=== PATIENT | female | born 1970 ===

== ENCOUNTER 2017-11-06 20:51 | Inpatient (IN) ==
[2017-11-06 21:52] LABS: Baso # (Auto) 0.1 th/mm3 (0.0-0.2); Baso % (Auto) 0.7 % (0.0-2.0); Hematocrit 36.8 % (35.0-46.0); Hemoglobin 11.1 gm/dL (11.6-15.3); Lymph # (Auto) 1.3 th/mm3 (1.0-4.8); Lymph % (Auto) 15.9 % (9.0-44.0); Mean Corpuscular Hemoglobin 20.3 pg (27.0-34.0); Mean Corpuscular Volume 67.3 fL (80.0-100.0); Mono # (Auto) 0.5 th/mm3 (0.0-0.9); Mono % (Auto) 6.1 % (0.0-8.0); Neut # (Auto) 6.2 th/mm3 (1.8-7.7); Neut % (Auto) 77.3 % (16.0-70.0); Platelet Count 255 th/mm3 (150-450); Red Blood Count 5.47 mil/mm3 (4.00-5.30); Red Cell Distribution Width 18.3 % (11.6-17.2)
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
[2017-11-06 21:54] LABS: Mean Corpuscular HGB Conc 30.1 % (32.0-36.0)
[2017-11-06 22:15] LABS: Alanine Aminotransferase 14 U/L (10-53); Albumin 3.6 g/dL (3.4-5.0); Alkaline Phosphatase 154 U/L (45-117); Anion Gap 13 meq/L (5-15); Aspartate Aminotransferase 16 U/L (15-37); Beta Hydroxybutyric Acid 0.14 mmol/L (0.00-0.39); Blood Urea Nitrogen 11 mg/dL (7-18); Calcium 8.2 mg/dL (8.5-10.1); Carbon Dioxide 22.4 meq/L (21.0-32.0); Chloride 101 meq/L (98-107); Glomerular Filtration Rate 71 mL/min (>89); Potassium 3.9 meq/L (3.5-5.1); Sodium 136 meq/L (136-145); Total Protein 7.3 g/dL (6.4-8.2)
[2017-11-06 22:25] LABS: Glucose,Random 483 mg/dL (74-106)
[2017-11-06 22:50] LABS: Bilirubin,Urine Negative (Negative); Clarity,Urine Hazy (Clear); Color,Urine Yellow (Yellw/Straw); Glucose,Urine (UA) 500 or Greater mg/dL (Negative); Leukocyte Esterase,Urine Moderate (Negative); Nitrite,Urine Negative (Negative); Specific Gravity,Urine 1.037 (1.002-1.035); Squamous Epithelial Cell,Urine 1 /hpf (0-5)
[2017-11-06 22:55] LABS: Amphetamine Screen,Urine Neg (Neg); Barbiturate Screen,Urine Neg (Neg); Cannabinoid Screen,Urine Neg (Neg); Cocaine Screen,Urine Neg (Neg)
[2017-11-06 22:57] LABS: Opiate Screen,Urine Neg (Neg)
[2017-11-06] MEDS: Nitrofurantoin Monohydrate-Macrocrystal 100 MG Capsule PO SCH (23:08)
[2017-11-06] MEDS ORDERED: Sod Chloride 0.9% Inj 1,000 ML IV.SIG SCH (23:45)
[2017-11-07] MEDS ORDERED: Sod Chloride 0.9% Inj 1,000 ML IV.SIG SCH (01:15)
[2017-11-07] MEDS: Nitrofurantoin Monohydrate-Macrocrystal 100 MG Capsule PO SCH (08:38)
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
[2017-11-07] MEDS ORDERED: LORazepam 1 MG Tablet PO PRN (15:55)
[2017-11-07] MEDS ORDERED: Bisacodyl 10 MG Supp RECTAL PRN (15:55)
[2017-11-07] MEDS ORDERED: Aluminum/Magnesium/Simethacone Susp 30 ML UDC PO PRN (15:55)
[2017-11-07] MEDS ORDERED: Haloperidol Inj 5 MG/ML Ampul IV.PUSH PRN (15:55)
[2017-11-07] MEDS: Senna/Docusate Sodium 8.6/50 MG Tablet PO SCH (20:40)
[2017-11-07] MEDS ORDERED: Dextrose 50% in Water 50 ML Vial IV.PUSH PRN (22:18)
[2017-11-07] MEDS: Insulin NovoLIN Regular Correctional Sugar Inj SQ SCH (22:46)
[2017-11-07] MEDS: Insulin Detemir Inj 1,000 UNIT/10 ML Vial SQ SCH (23:39)
[2017-11-08] MEDS: Insulin NovoLIN Regular Correctional Sugar Inj SQ SCH ×3 (08:20→20:22)
[2017-11-08] MEDS: Nitrofurantoin Monohydrate-Macrocrystal 100 MG Capsule PO SCH (08:30)
[2017-11-08] MEDS: Senna/Docusate Sodium 8.6/50 MG Tablet PO SCH ×2 (08:30→20:26)
[2017-11-08] MEDS: Insulin Detemir Inj 1,000 UNIT/10 ML Vial SQ SCH ×2 (09:22→20:25)
[2017-11-08 09:31] LABS: Anion Gap 10 meq/L (5-15); Blood Urea Nitrogen 8 mg/dL (7-18); Calcium 8.4 mg/dL (8.5-10.1); Carbon Dioxide 30.3 meq/L (21.0-32.0); Chloride 100 meq/L (98-107); Cholesterol 149 mg/dL (120-200); Glomerular Filtration Rate Greater Than 89 mL/min (>89); Glucose,Random 341 mg/dL (74-106); Potassium 4.1 meq/L (3.5-5.1); Sodium 140 meq/L (136-145)
[2017-11-08 09:40] LABS: Chol/HDL Ratio 4.19 Ratio; HDL Cholesterol 35.5 mg/dL (40.0-60.0); LDL Cholesterol,Calculated 88 mg/dL (0-99); Triglycerides 126 mg/dL (42-150)
--- NOTE | 2017-11-08 11:51 | P.CON ---
History of Present Illness Service: Hospitalist Consult date: 11/08/17 Requesting Physician: Paul Mendez Reason for Consult: Medical management, diabetes management Primary Care Provider: UNKNOWN History of Present Illness: This is a 47-year-old female with past medical history significant for depression, diabetes and history of MRSA skin lesions who presented to [facility] ED under Pacheco act due to paranoia. In the ED, patient was found to have uncontrolled blood sugars with BS of 475. She has since been admitted to inpatient psychiatry for acute psychosis. Hospitalist services have been consulted to assist with medical management. Patient seen and examined. Patient reports skin lesions on her face and breasts which are chronic. She denies any headache, vision changes, weakness numbness or tingling. She denies any fever or chills. She denies any chest pain or shortness of breath. She denies any nausea, vomiting or abdominal pain. She does report a history of infrequent constipation for which she takes Senokot at home for a daily basis. She reports her last BM was yesterday morning. She denies any complaints of dysuria or hematuria. Patient states she takes metformin at home. She denies using insulin. Her last blood sugar reading was 255. Review of Systems All other systems reviewed negative except as stated in [facility] PMFSH - History History Provided By: Patient, Medical Record - Medical History Medical History: Medical History (Last Updated 11/08/17 @ 11:31 by Aylin Otero) Hypertension Type 2 diabetes mellitus - Surgical History Surgical History: Surgical History (Last Updated 11/08/17 @ 11:32 by Aylin Otero) No history of previous surgery (Acute) - Family History Family History: Family History (Last Updated 11/08/17 @ 11:32 by Aylin Otero) Father Diabetes - Tobacco History Second Hand Smoke Exposure: No Smoking Status: Never smoker - Alcohol History How Often Do You Have a Drink Containing Alcohol: Never - Substance Use History Substance History: No History of Abuse - Travel History Recent Travel in the [place] Within the Last 8 Weeks: No Recent Travel Out of the Country Within the Last 8 Weeks: No - Immunization History Tetanus Immunization: Unable to Assess Hx Influenza Vaccine This Season: Unable to Assess Medications and Allergies Active Medications: Active Medications Al Hydrox/Mg Hydrox/Simethicone (Mag-Al Plus Susp Liq) 30 ml PO Q6H PRN PRN Reason: DYSPEPSIA Al Hydroxide/Mg Hydroxide (Milk Of Magnesia Liq) 30 ml PO Q12H PRN PRN Reason: Mild Constipation Bisacodyl (Dulcolax Supp) 10 mg RECTAL DAILY PRN PRN Reason: SEVERE CONSITIPATION Dextrose (D50w Vial) 50 ml IV.PUSH UNSCH PRN PRN Reason: PER HYPOGLYCEMIA PROTOCOL Flumazenil (Romazecon Inj) 0.2 mg IV.PUSH Q1M PRN PRN Reason: OVERSEDATION Glucagon (Glucagon Inj) 1 mg OTHER PRN PRN PRN Reason: for Hypoglycemia Protocol Haloperidol Lactate (Haldol Inj) 1 mg IV.PUSH Q15M PRN PRN Reason: for severe agitation Sodium Chloride (Ns Inj) 1,000 mls @ 0 mls/hr IV.SIG BOLUS [facility] Last Infusion: 11/07/17 01:30 Dose: Infused Sodium Chloride (Ns Inj) 1,000 mls @ 0 mls/hr IV.SIG BOLUS [facility] Last Infusion: 11/07/17 03:45 Dose: Infused Insulin Detemir (Levemir Inj) 6 unit SQ BID [facility] Last Admin: 11/08/17 09:22 Dose: 6 unit Insulin Human Regular (Novolin R Correctional Sugar Inj) 0 units SQ ACHS [facility]; Protocol Last Admin: 11/08/17 08:20 Dose: 5 units Lactulose (Lactulose Liq) 30 ml PO DAILY PRN PRN Reason: SEVERE CONSITIPATION Lorazepam (Ativan) 2 mg PO Q2H PRN PRN Reason: for CIWA 11-14 Lorazepam (Ativan Inj) 2 mg IV.PUSH Q2H PRN PRN Reason: for CIWA 11-14 Lorazepam (Ativan Inj) 2 mg IV.PUSH Q1H PRN PRN Reason: for CIWA 15-20 Lorazepam (Ativan Inj) 1 mg IV.PUSH Q4H PRN PRN Reason: for CIWA 8-10 Lorazepam (Ativan) 1 mg PO Q4H PRN PRN Reason: for CIWA 8-10 Lorazepam (Ativan Inj) 2 mg IV.PUSH Q15M PRN PRN Reason: for CIWA > 20 [facility] Admin: 11/08/17 08:30 Dose: 100 mg Senna/Docusate Sodium (Vielka-Colace) 1 tab PO BID [facility] Last Admin: 11/08/17 08:30 Dose: 1 tab Sennosides (Senokot) 17.2 mg PO Q12H PRN PRN Reason: Moderate Constipation Venlafaxine HCl (Effexor) 25 mg PO BID [facility] Last Admin: 11/07/17 20:42 Dose: Not Given Allergies Allergy/AdvReac Type Severity Reaction Status Date / Time No Known Allergies Allergy Verified 11/06/17 21:32 Home Medications Medication Instructions Recorded Confirmed Type Unable to Obtain Home Meds 11/06/17 11/06/17 History Physical Exam Vital signs: Vital Signs 11/07/17 15:13 11/07/17 18:13 11/08/17 05:48 Temperature 97.9 F 98.6 F Pulse Rate 80 87 82 Respiratory Rate 16 Blood Pressure 168/102 H 128/63 Pulse Oximetry 98 96 Intake & Output 11/07/17 11/08/17 11/08/17 18:59 06:59 18:59 Weight 120.9 kg Other: Weight On Admission 120.9 kg Narrative: GENERAL: Obese WDWN female patient, INAD. Awake and alert. SKIN: Warm and dry. +several small superficial skin lesions on chin and bilateral breasts, no indication of underlying abscess, no obvious infection. HEAD: Atraumatic. Normocephalic. EYES: Pupils equal and round. No scleral icterus. No injection or drainage. ENT: No nasal bleeding or discharge. Mucous membranes pink and moist. NECK: Trachea midline. CARDIOVASCULAR: Regular rate and rhythm. RESPIRATORY: No accessory muscle use. Clear to auscultation. Breath sounds equal bilaterally. GASTROINTESTINAL: Abdomen soft, non-tender, nondistended. Hepatic and splenic margins not palpable. MUSCULOSKELETAL: Extremities without clubbing, cyanosis, or edema. No obvious deformities. NEUROLOGICAL: Awake and alert. No obvious cranial nerve deficits. Motor grossly within normal limits. No focal neurologic finding appreciated. Normal speech. PSYCHIATRIC: Calm and cooperative. Judgement and insight poor. Assessment and Plan - Assessment (1) Hyperglycemia due to type 2 diabetes mellitus Code(s): E11.65 - Type 2 diabetes mellitus with hyperglycemia Status: Acute - Plan 47-year-old female with past medical history significant for depression, diabetes and history of MRSA skin lesions who presented to [facility] ED under P[place]co act due to paranoia admitted with acute psychosis to inpatient psychiatry. Hospitalist services have been consulted to assist with medical management. Acute psychosis Depression -Management per psychiatric team Uncontrolled DM Patient's blood sugars were 75 in the ED -Patient started on Levemir 6 units twice daily since admission, continue -Resume patient on home dose of metformin 500 mg twice daily -Obtain hemoglobin A1c level -Consult dietitian for diabetic education -Accu-Cheks and insulin sliding scale Hx of MRSA skin lesions -Apply Bactroban nasally BID x 5 days -Apply Bactroban to skin lesions BID -have patient wash with chlorhexidine soap once a day 5 days -Peridex mouthwash BID Bacteriuria -Urine culture with 50 200,000 gram-positive otilia, probable contaminants -Discontinue Macrobid ?Hypertension Patient denies diagnosis of hypertension or taking any antihypertensives at home BP elevated 168/102 yesterday, suspect situational, due to increased agitation BP now well controlled -We will continue to monitor BP and initiate scheduled treatment if indicated -Clonidine as needed with parameters DVT prophylaxis -Patient is ambulatory Thank you for this consultation. We will continue to follow patient along with you. Code Status: FULL Discussed Condition With: patient, nursing staff (1) Hyperglycemia due to type 2 diabetes mellitus Qualifiers: Diabetes mellitus watermelon inspector insulin use: unspecified watermelon inspector insulin use status Qualified Code(s): E11.65 - Type 2 diabetes mellitus with hyperglycemia
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
[2017-11-08] MEDS: Mupirocin 2% Nasal Oint Topical Syringe EACH NARE SCH ×2 (16:50→20:28)
[2017-11-08] MEDS: Chlorhexidine Gluconate 0.12% Liq 15 ML UDC SWISH-SPIT SCH ×2 (16:51→20:28)
[2017-11-08] MEDS: QUEtiapine 25 MG Tablet PO SCH ×2 (16:52→20:26)
[2017-11-08 17:55] LABS: Hemoglobin A1c 12.3 % (4.3-6.0)
[2017-11-09] MEDS: Insulin NovoLIN Regular Correctional Sugar Inj SQ SCH ×5 (07:27→22:50)
[2017-11-09] MEDS: Senna/Docusate Sodium 8.6/50 MG Tablet PO SCH ×2 (07:59→22:30)
[2017-11-09] MEDS: QUEtiapine 25 MG Tablet PO SCH ×2 (08:00→22:30)
[2017-11-09] MEDS ORDERED: Insulin Detemir Inj 1,000 UNIT/10 ML Vial SQ SCH (10:08)
--- NOTE | 2017-11-09 13:50 | P.PNPSY ---
Subjective Remarks: Reviewed electronic medical records and discussed case with staff. Follow-up was conducted in patient's room with nurse present. Patient was found lying in her bed with her eyes closed. She did answer questions, albeit, slowly. Patient reports that she feels tired. She does state that she has been sleeping well and she has a good appetite. She denies any side effects from the medication. However she seems to be begrudgingly participating in the interview. When I ask her how her mood is today she responds "angry". When asked, she does claim that she is not usually angry. Staff reported that she was extremely aggressive this morning when she came out was shoveling her breakfast into her mouth with her hands, and through her grits on the floor. Patient is being moved to E due to multiple medical problems including open MRSA wounds. Mental Status Examination Appearance: Dirty, Disheveled Consciousness: Alert Orientation: x4 Motor Activity: Normal gait Speech: Rapid, Other (Loud) Language: Adequate Fund of Knowledge: Inadequate Attention and Concentration: Adequate Memory: Unremarkable Mood: Anxious Affect: Anxious Thought Process & Associations: Loose associations, Tangential Thought Content: Bizarre thinking Hallucination Type: None Delusion Type: Bizarre, Paranoid Suicidal Ideation: No Suicidal Plan: No Suicidal Intention: No Homicidal Ideation: No Homicidal Plan: No Homicidal Intention: No Insight: Poor Judgment: Poor Assessment and Plan - Assessment (1) Unspecified psychosis Code(s): F29 - Unspecified psychosis not due to a substance or known physiological condition Status: Acute - Plan Plan: Continue with current treatment plan. Justification for Continued Inpatient Stay: Moving this patient to a less restrictive environment would likely result in decompensation.
--- NOTE | 2017-11-09 15:02 | P.PN ---
Subjective Interval history: Follow-up on patient with MRSA. Patient seen and examined. Patient is concerned about MRSA. Discussed with patient suspected MRSA colonization and steps for decolonization. Patient denies any fever chills. She denies any chest pain or shortness of breath. Blood sugars better this morning running in the low 200s. Physical Exam Vital signs: Vital Signs 11/08/17 15:51 11/09/17 06:05 Temperature 97.7 F 97.9 F Pulse Rate 76 83 Respiratory Rate 18 18 Blood Pressure 133/72 136/70 Pulse Oximetry 96 99 Narrative: GENERAL: Obese WDWN female patient, INAD. Awake and alert. Sitting on her bed. Appears comfortable. SKIN: Warm and dry. +several small superficial skin lesions on chin and bilateral breasts, no indication of underlying abscess, no obvious infection. HEAD: Atraumatic. Normocephalic. EYES: Pupils equal and round. No scleral icterus. No injection or drainage. ENT: No nasal bleeding or discharge. Mucous membranes pink and moist. NECK: Trachea midline. CARDIOVASCULAR: Regular rate and rhythm. RESPIRATORY: No accessory muscle use. Clear to auscultation. Breath sounds equal bilaterally. GASTROINTESTINAL: Abdomen soft, non-tender, nondistended. MUSCULOSKELETAL: Extremities without clubbing, cyanosis, or edema. No obvious deformities. NEUROLOGICAL: Awake and alert. No obvious cranial nerve deficits. Motor grossly within normal limits. No focal neurologic finding appreciated. Normal speech. PSYCHIATRIC: Calm and cooperative. Judgement and insight poor. Results - Labs CBC & Chem 7: 11/06/17 21:06 11/08/17 08:20 Laboratory Results - last 24 hr 11/08/17 11/08/17 11/08/17 08:20 16:29 19:23 POC Glucose 263 H 276 H Hemoglobin A1c 12.3 H 11/09/17 11/09/17 06:24 11:37 POC Glucose 210 H 226 H Hemoglobin A1c Assessment and Plan - Assessment (1) Hyperglycemia due to type 2 diabetes mellitus Code(s): E11.65 - Type 2 diabetes mellitus with hyperglycemia Status: Acute - Plan 47-year-old female with past medical history significant for depression, diabetes and history of MRSA skin lesions who presented to [facility] ED under P[place]co act due to paranoia admitted with acute psychosis to inpatient psychiatry. Hospitalist services have been consulted to assist with medical management. Acute psychosis Depression -Management per psychiatric team Uncontrolled DM Patient's blood sugars were 75 in the ED A1c 12.3 -Patient started on Levemir 6 units twice daily, increase to 8U BID. Consult prosthodontist/educator for insulin teaching. -Continue on home dose of metformin 500 mg twice daily -Dietitian consulted for diabetic education -Accu-Cheks and insulin sliding scale Hx of MRSA skin lesions -Apply Bactroban nasally BID x 5 days -Apply Bactroban to skin lesions BID -have patient wash with chlorhexidine soap once a day 5 days -Peridex mouthwash BID 11/09 patient has been refusing all of the above. Lengthy discussion with patient in the room today with RN at the bedside discussing the importance of medication compliance. Bacteriuria -Urine culture with 50-100,000 gram-positive otilia, probable contaminants -Macrobid discontinued ?Hypertension Patient denies diagnosis of hypertension or taking any antihypertensives at home BP elevated 168/102 yesterday, suspect situational, due to increased agitation BP now well controlled -We will continue to monitor BP and initiate scheduled treatment if indicated -Clonidine as needed with parameters DVT prophylaxis -Patient is ambulatory Code Status: FULL Discussed Condition With: patient, Ching RN, Dr. Johansen (1) Hyperglycemia due to type 2 diabetes mellitus Qualifiers: Diabetes mellitus retirement insulin use: unspecified retirement insulin use status Qualified Code(s): E11.65 - Type 2 diabetes mellitus with hyperglycemia
[2017-11-09] MEDS: Chlorhexidine Gluconate 0.12% Liq 15 ML UDC SWISH-SPIT SCH (22:30)
[2017-11-09] MEDS: Mupirocin 2% Nasal Oint Topical Syringe EACH NARE SCH (22:30)
[2017-11-09] MEDS: Insulin Detemir Inj 1,000 UNIT/10 ML Vial SQ SCH (22:31)
--- NOTE | 2017-11-10 08:42 | P.PN ---
Subjective Interval history: Follow up on patient with poorly controlled diabetes, MRSA. Patient seen and examined. Patient states she is doing well. She is up to be discharged today so that she can pay her rent and not lose her apartment. She denies any new medical complaints. Blood sugar was slightly more elevated today but patient ate pancakes and syrup for breakfast. Also, patient has been refusing insulin. She has also been refusing Bactroban cream. Physical Exam Vital signs: Vital Signs 11/10/17 05:33 Temperature 97 F L Pulse Rate 80 Respiratory Rate 18 Blood Pressure 145/67 H Pulse Oximetry 94 L Intake & Output 11/09/17 11/10/17 11/10/17 18:59 06:59 18:59 Intake Total 120 / 120 Balance 120 / 120 Intake: Oral 120 / 120 Narrative: GENERAL: Obese WDWN female patient, INAD. Awake and alert. Sitting up in bed watching tv. SKIN: Warm and dry. +several small superficial skin lesions on chin and bilateral breasts, no indication of underlying abscess, no obvious infection, improving. HEENT: Atraumatic. Normocephalic. Pupils equal and round. No scleral icterus. No injection or drainage. No nasal bleeding or discharge. Mucous membranes pink and moist. NECK: Trachea midline. CARDIOVASCULAR: Regular rate and rhythm. RESPIRATORY: No accessory muscle use. Clear to auscultation. Breath sounds equal bilaterally. GASTROINTESTINAL: Abdomen soft, non-tender, nondistended. MUSCULOSKELETAL: Extremities without clubbing, cyanosis, or edema. No obvious deformities. NEUROLOGICAL: Awake and alert. No obvious cranial nerve deficits. Motor grossly within normal limits. No focal neurologic finding appreciated. Normal speech. PSYCHIATRIC: Calm and cooperative. Judgement and insight poor. Results - Labs CBC & Chem 7: 11/06/17 21:06 11/08/17 08:20 Laboratory Results - last 24 hr 11/09/17 11/09/17 11/09/17 11:37 16:39 20:26 POC Glucose 226 H 209 H 213 H 11/10/17 07:56 POC Glucose 239 H Assessment and Plan - Assessment (1) Hyperglycemia due to type 2 diabetes mellitus Code(s): E11.65 - Type 2 diabetes mellitus with hyperglycemia Status: Acute - Plan 47-year-old female with past medical history significant for depression, diabetes and history of MRSA skin lesions who presented to [facility] ED under [facility] act due to paranoia admitted with acute psychosis to inpatient psychiatry. Hospitalist services have been consulted to assist with medical management. Acute psychosis Depression -Management per psychiatric team Uncontrolled DM Patient's blood sugars were 75 in the ED A1c 12.3 -continue on Levemir 8u BID, patient will likely need to titrate up on her Levemir dose. She will need to follow-up with PCP as an outpatient. -Continue on home dose of metformin 500 mg twice daily -Dietitian and rolling mill operator consulted for diabetic education and insulin teaching -Accu-Cheks and insulin sliding scale Hx of MRSA skin lesions -Apply Bactroban nasally BID x 5 days -Apply Bactroban to skin lesions BID -have patient wash with chlorhexidine soap once a day 5 days -Peridex mouthwash BID 11/09 patient has been refusing all of the above. Lengthy discussion with patient in the room today with RN at the bedside discussing the importance of medication compliance. Bacteriuria -Urine culture with 50-100,000 gram-positive otilia, probable contaminants -Macrobid discontinued ?Hypertension Patient denies diagnosis of hypertension or taking any antihypertensives at home BP elevated 168/102 yesterday, suspect situational, due to increased agitation BP acceptable -We will continue to monitor BP and initiate scheduled treatment if indicated -Clonidine as needed with parameters DVT prophylaxis -Patient is ambulatory Patient appears stable from hospitalist standpoint. [facility] will sign off. Please reconsult if needed. Code Status: FULL Discussed Condition With: patient, nursing staff (1) Hyperglycemia due to type 2 diabetes mellitus Qualifiers: Diabetes mellitus termination clerk insulin use: unspecified intermediate insulin use status Qualified Code(s): E11.65 - Type 2 diabetes mellitus with hyperglycemia
[2017-11-10] MEDS: Chlorhexidine Gluconate 0.12% Liq 15 ML UDC SWISH-SPIT SCH ×3 (10:16→22:32)
[2017-11-10] MEDS: Insulin Detemir Inj 1,000 UNIT/10 ML Vial SQ SCH ×2 (10:17→22:32)
[2017-11-10] MEDS: QUEtiapine 25 MG Tablet PO SCH ×2 (10:17→22:32)
[2017-11-10] MEDS: Senna/Docusate Sodium 8.6/50 MG Tablet PO SCH ×2 (10:17→22:32)
[2017-11-10] MEDS: Insulin NovoLIN Regular Correctional Sugar Inj SQ SCH ×4 (10:18→20:34)
[2017-11-10] MEDS: Mupirocin 2% Nasal Oint Topical Syringe EACH NARE SCH ×2 (10:37→22:32)
--- NOTE | 2017-11-10 17:26 | P.DIET ---
Nutritional Evaluation Type of nutrition evaluation: initial Nutrition screening: [facility] [place] Scre[place] comments: 11/08/17 [facility] [place] Diabetes Diet Education Subjective Subjective Comments: Pt provided w/diet education during this visit Objective - Diagnosis Psychosis - Objective Eddy body weight: 65.9 kg % IBW: 183 Body Weight Used for Calculations: IBW Energy Needs - Lower Range (kCal/kg): 28 Energy Needs - Upper Range (kCal/kg): 33 Lower Limit kCal/kg (kCals): 1,845 Upper Limit kCal/kg (kCals): 2,175 Lower Limit Protein Factor (Grams per Kg): 1.5 Upper Limit Protein Factor (Grams per Kg): 1.8 Lower Protein Needs (Protein): 99 Upper Protein Needs (Protein): 119 Dietitian Reviewed in Medical Record: Current diet, Curent medications, Intake & Output, Labs, Medical history Diet Order: 1800ADA Objective Comments: PMH: HTN, DM-2, Depression Admiss. Glucose 483, A1C 12.3 Levemir, Metformin Assessment Assessment: Pt provided w/diet education for 1800ADA consistent CHO diet, low Na and reading food labels. Pt's questions answered to her satisfaction. Dietitian to answer additional questions as needed. Recommendations: 1.Pt provided w/diet education for 1800ADA consistent CHO diet, low Na and reading food labels 2. Pt's questions answered to her satisfaction 3. Dietitian to answer additional questions as needed
--- NOTE | 2017-11-10 17:48 | P.PNPSY ---
Subjective Remarks: Reviewed electronic medical record and discussed case with staff. Follow up is conducted in the patient's room. She is found sitting up in the bed eating. Her mood and affect are much improved. She reports that she is still slightly irritable, but overall feels much improved. She has been discharged from medical. The MRSA culture is still pending. She reports that she slept well and has a good appetite. Mental Status Examination Appearance: Dirty, Disheveled Consciousness: Alert Orientation: x4 Motor Activity: Normal gait Speech: Rapid, Other (Loud) Language: Adequate Fund of Knowledge: Inadequate Attention and Concentration: Adequate Memory: Unremarkable Mood: Anxious Affect: Anxious Thought Process & Associations: Loose associations, Tangential Thought Content: Bizarre thinking Hallucination Type: None Delusion Type: Bizarre, Paranoid Suicidal Ideation: No Suicidal Plan: No Suicidal Intention: No Homicidal Ideation: No Homicidal Plan: No Homicidal Intention: No Insight: Poor Judgment: Poor Assessment and Plan - Assessment (1) Unspecified psychosis Code(s): F29 - Unspecified psychosis not due to a substance or known physiological condition Status: Acute - Plan Plan: Continue with current treatment plan. Hopeful of a possible discharge on Monday provided continued improvement in patient's mood and affect. Justification for Continued Inpatient Stay: Moving patient to a less restrictive level may result in decompensation.
[2017-11-11] MEDS: Insulin NovoLIN Regular Correctional Sugar Inj SQ SCH ×4 (08:12→21:57)
--- NOTE | 2017-11-11 08:17 | P.PNPSY ---
Subjective Remarks: Patient seen today in her room with nurse Jared, chart reviewed, patient compliant medication. Patient sitting calmly in her room she is alert oriented calm and cooperative with me denying suicidality homicidality voices or visions. States she is feeling better. She saw remains on MRSA precautions. She is hoping for discharge within 24-48 hours. Says she does have a room that she rents that she will be going back to while she is searching for more permanent place of residence. We will also need referral to [facility] for outpatient follow-up Review of Systems All other systems reviewed negative except as stated in HPI Mental Status Examination Appearance: Appropriate Consciousness: Alert Orientation: x4 Motor Activity: Normal gait Speech: Rapid, Other (Loud) Language: Adequate Fund of Knowledge: Inadequate Attention and Concentration: Adequate Memory: Unremarkable Mood: Other (Euthymic to mildly anxious) Affect: Anxious ([place]) Thought Process & Associations: Loose associations (Improve), Tangential Thought Content: Bizarre thinking (Improved let us) Hallucination Type: None Delusion Type: Bizarre (Improved), Paranoid (Improved) Suicidal Ideation: No Suicidal Plan: No Suicidal Intention: No Homicidal Ideation: No Homicidal Plan: No Homicidal Intention: No Insight: Poor Judgment: Poor Assessment and Plan - Assessment (1) Unspecified psychosis Code(s): F29 - Unspecified psychosis not due to a substance or known physiological condition Status: Acute - Plan Plan: Patient overall showing some resolution of her psychosis. She noted denies voices or visions denies suicidality. 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
[2017-11-11] MEDS: Mupirocin 2% Nasal Oint Topical Syringe EACH NARE SCH ×3 (09:49→21:54)
[2017-11-11] MEDS: QUEtiapine 25 MG Tablet PO SCH ×2 (09:50→21:59)
[2017-11-11] MEDS: Insulin Detemir Inj 1,000 UNIT/10 ML Vial SQ SCH ×2 (09:50→21:56)
[2017-11-11] MEDS: Senna/Docusate Sodium 8.6/50 MG Tablet PO SCH ×2 (09:50→21:59)
[2017-11-11] MEDS: Chlorhexidine Gluconate 0.12% Liq 15 ML UDC SWISH-SPIT SCH ×2 (09:50→22:09)
[2017-11-12] MEDS: Insulin NovoLIN Regular Correctional Sugar Inj SQ SCH ×4 (07:38→21:07)
[2017-11-12] MEDS: Senna/Docusate Sodium 8.6/50 MG Tablet PO SCH ×2 (10:10→21:06)
[2017-11-12] MEDS: QUEtiapine 25 MG Tablet PO SCH ×2 (10:10→21:06)
[2017-11-12] MEDS: Mupirocin 2% Nasal Oint Topical Syringe EACH NARE SCH ×2 (10:10→21:05)
[2017-11-12] MEDS: Chlorhexidine Gluconate 0.12% Liq 15 ML UDC SWISH-SPIT SCH ×2 (10:13→22:09)
[2017-11-12] MEDS: Insulin Detemir Inj 1,000 UNIT/10 ML Vial SQ SCH ×2 (11:46→21:06)
--- NOTE | 2017-11-12 20:05 | P.PNPSY ---
Subjective Remarks: Reviewed electronic medical records and discussed case with staff. Follow-up was conducted in the patient's room. Staff reports that patient has increased irritability and was labile last night with staff over the application of some ointment. Patient reports that she slept well as had a good appetite. She feels that her mood is good and her affect is euthymic with this provider. She reports being irritable with staff because she did not like the way they were applying her ointment. Mental Status Examination Appearance: Appropriate Consciousness: Alert Orientation: x4 Motor Activity: Normal gait Speech: Rapid, Other (Loud) Language: Adequate Fund of Knowledge: Inadequate Attention and Concentration: Adequate Memory: Unremarkable Mood: Other (Euthymic to mildly anxious) Affect: Anxious ([place]) Thought Process & Associations: Loose associations (Improve), Tangential Thought Content: Bizarre thinking (Improved let us) Hallucination Type: None Delusion Type: Bizarre (Improved), Paranoid (Improved) Suicidal Ideation: No Suicidal Plan: No Suicidal Intention: No Homicidal Ideation: No Homicidal Plan: No Homicidal Intention: No Insight: Poor Judgment: Poor Assessment and Plan - Assessment (1) Unspecified psychosis Code(s): F29 - Unspecified psychosis not due to a substance or known physiological condition Status: Acute - Plan Plan: Patient will be reevaluated tomorrow by the attending psychiatrist. Continue with current treatment plan. Justification for Continued Inpatient Stay: Moving this patient to a less restrictive environment would likely result in decompensation. 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
[2017-11-13] MEDS: Chlorhexidine Gluconate 0.12% Liq 15 ML UDC SWISH-SPIT SCH ×2 (09:25→21:30)
[2017-11-13] MEDS: Senna/Docusate Sodium 8.6/50 MG Tablet PO SCH ×2 (09:26→21:29)
[2017-11-13] MEDS: Insulin Detemir Inj 1,000 UNIT/10 ML Vial SQ SCH ×2 (09:26→21:29)
[2017-11-13] MEDS: Mupirocin 2% Nasal Oint Topical Syringe EACH NARE SCH (09:26)
[2017-11-13] MEDS: QUEtiapine 25 MG Tablet PO SCH ×2 (09:26→21:30)
[2017-11-13] MEDS: Insulin NovoLIN Regular Correctional Sugar Inj SQ SCH ×4 (09:28→21:45)
--- NOTE | 2017-11-13 12:45 | P.PNPSY ---
Subjective Remarks: Reviewed electronic medical records and discussed case with staff. Follow-up was conducted in the patient's room. Initially, is hopeful for discharge however, Shadia nurse outreach case manager spoke with people with him the patient lived and she is not welcome to return there. Staff reports that she is been okay but somewhat guarded and withdrawn. She remained seclusive to her room. With some bizarre behavior noted. She reports that her mood is good and that her appetite is been good. She states that she slept well. Upon my examination she states understanding that she cannot return to that residence and that discharge planning is in progress. Mental Status Examination Appearance: Appropriate Consciousness: Alert Orientation: x4 Motor Activity: Normal gait Speech: Rapid, Other (Loud) Language: Adequate Fund of Knowledge: Inadequate Attention and Concentration: Adequate Memory: Unremarkable Mood: Other (Euthymic to mildly anxious) Affect: Anxious ([place]patrick) Thought Process & Associations: Loose associations (Improve), Tangential Thought Content: Bizarre thinking (Improved let us) Hallucination Type: None Delusion Type: Bizarre (Improved), Paranoid (Improved) Suicidal Ideation: No Suicidal Plan: No Suicidal Intention: No Homicidal Ideation: No Homicidal Plan: No Homicidal Intention: No Insight: Poor Judgment: Poor Assessment and Plan - Assessment (1) Unspecified psychosis Code(s): F29 - Unspecified psychosis not due to a substance or known physiological condition Status: Acute - Plan Plan: Patient will be reevaluated tomorrow by the attending psychiatrist. Continue with current treatment plan. Justification for Continued Inpatient Stay: Moving this patient to a less restrictive environment would likely result in decompensation. 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
--- NOTE | 2017-11-14 09:26 | P.PNPSY ---
Subjective Remarks: Patient seen for follow, chart reviewed. Discussion with nursing staff reported the patient seclusive, guarded, compliant with medications. Patient was found sitting hospital bed noted become cooperative. Patient began to talk about having phlegm that is in her throat and radiates down onto her right arm but then states he was prior to her coming to the hospital but has not had the symptoms since admission. Patient noted be somewhat tangential. Patient states that her mood has been "up and down" stating that she feels down about everything referring to her current circumstances of being homeless. She states having slept well, with good appetite, denying perceptual services last time being "10 years ago", denying suicidal homicidal ideations. Patient mentions of wanting to return back to her resting room but was reiterated that patient allowed to return and therefore is now considering going to an assisted living facility in the interim. Review of Systems All other systems reviewed negative except as stated in HPI Mental Status Examination Appearance: Appropriate Consciousness: Alert Orientation: x4 Motor Activity: Normal gait Speech: Rapid, Other (Loud) Language: Adequate Fund of Knowledge: Inadequate Attention and Concentration: Adequate Memory: Unremarkable Mood: Other ("down") Affect: Anxious (Kilpatrick) Thought Process & Associations: Loose associations (Improve) Thought Content: Bizarre thinking (Improved) Hallucination Type: None Delusion Type: Paranoid (Improved) Suicidal Ideation: No Suicidal Plan: No Suicidal Intention: No Homicidal Ideation: No Homicidal Plan: No Homicidal Intention: No Insight: Poor Judgment: Poor Assessment and Plan - Assessment (1) Unspecified psychosis Code(s): F29 - Unspecified psychosis not due to a substance or known physiological condition Status: Acute - Plan Plan: Patient this time there is some disorganization and tangentiality but denies any perceptional services, denies any suicidal homicidal ideations. Patient reports that her mood is down due to her current social circumstances but is considering going to an assisted living facility. Patient appears to have some degree of intellectual deficit and some tangentiality during interview today. We will increase quetiapine to 50 mg p.o. twice daily. We will continue to monitor mood and behavior. Discharge planning in progress. Justification for Continued Inpatient Stay: At risk of further decompensation a lower level of care. 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
[2017-11-14] MEDS: Senna/Docusate Sodium 8.6/50 MG Tablet PO SCH ×2 (09:54→21:21)
[2017-11-14] MEDS: Insulin Detemir Inj 1,000 UNIT/10 ML Vial SQ SCH ×2 (09:54→21:22)
[2017-11-14] MEDS: Chlorhexidine Gluconate 0.12% Liq 15 ML UDC SWISH-SPIT SCH ×2 (09:54→21:21)
[2017-11-14] MEDS: Insulin NovoLIN Regular Correctional Sugar Inj SQ SCH ×4 (12:14→21:22)
[2017-11-14] MEDS: QUEtiapine 25 MG Tablet PO SCH ×2 (16:09→21:21)
[2017-11-15] MEDS: Insulin NovoLIN Regular Correctional Sugar Inj SQ SCH ×4 (09:34→20:50)
[2017-11-15] MEDS: QUEtiapine 25 MG Tablet PO SCH ×2 (09:35→20:50)
[2017-11-15] MEDS: Senna/Docusate Sodium 8.6/50 MG Tablet PO SCH ×2 (09:36→20:50)
[2017-11-15] MEDS: Chlorhexidine Gluconate 0.12% Liq 15 ML UDC SWISH-SPIT SCH ×2 (09:36→20:50)
[2017-11-15] MEDS: Insulin Detemir Inj 1,000 UNIT/10 ML Vial SQ SCH ×2 (09:36→20:50)
--- NOTE | 2017-11-15 16:19 | P.PNPSY ---
Subjective Remarks: Patient seen for follow up, chart reviewed. Discussion nursing staff reported patient has not seclusive denying any perceptional services or delusions with marginal hygiene. Patient was found lying hospital bed noted B, cooperative initially but had become irritable and agitated toward end interview when speaking about discharge planning. Patient states she had been feeling "okay" denying any physical complaints, denying any perceptual disturbances or delusions, adequate appetite, no difficulty or bowel movement. Patient reports tolerating medications well. Patient had become upset when speaking about the possibility of patient not being able to return back to the rented room where she her belongings have remained since admission. She states that she plans on returning back to this place for a week until she is able to find a new rental. Patient reports that she does not want anyone to bring her her belongings and that she does not trust anyone to gather her belongings with fear that someone may take things from her. She refuses to alternative options such as assisted living facilities or homeless shelters and she states she does not want to be around "those dirty people". Patient had become upset to the point where she was yelling and had to be redirected but no aggressive behavior. Despite multiple attempts to explain to patient the patient be not return she continues to believe that she is able to stay there legally. Review of Systems All other systems reviewed negative except as stated in HPI Mental Status Examination Appearance: Appropriate Consciousness: Alert Orientation: x4 Motor Activity: Normal gait Speech: Rapid, Other (Loud) Language: Adequate Fund of Knowledge: Inadequate Attention and Concentration: Adequate Memory: Unremarkable Mood: Irritable Affect: Irritable Thought Process & Associations: Other ([place]) Thought Content: Appropriate Hallucination Type: None Delusion Type: Paranoid (Improved) Suicidal Ideation: No Suicidal Plan: No Suicidal Intention: No Homicidal Ideation: No Homicidal Plan: No Homicidal Intention: No Insight: Fair Judgment: Impulsive Assessment and Plan - Assessment (1) Unspecified psychosis Code(s): F29 - Unspecified psychosis not due to a substance or known physiological condition Status: Acute - Plan Plan: Patient at this time continues to have good behavioral control, no aggressive behavior since, no perceptual disturbances or delusions, has a compliant with treatment. Patient refusing to go to an assisted lymphocytic homeless correction and demanding to be discharged to this rental room from which she came from with her believe that she has a right legally to remain there for a week until she is able to find another residential option which will need to be explored with legal intern. Patient will present to mental health court tomorrow which this issue will be brought up and to be clarified. We will continue to titrate quetiapine to assist with further mood stabilization to 100 mg p.o. twice daily. Continue rest of medications. Continue to monitor mood and behavior. Discharge planning in progress. Justification for Continued Inpatient Stay: At risk for further decompensation at lower level of care. 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
[2017-11-15 18:14] VITALS: TEMP 97.9
[2017-11-16 06:14] VITALS: BP 120/56; PULSE 81; RESP 15; O2SAT 99
[2017-11-16] MEDS: Senna/Docusate Sodium 8.6/50 MG Tablet PO SCH (08:30)
[2017-11-16] MEDS: QUEtiapine 25 MG Tablet PO SCH (08:30)
[2017-11-16] MEDS: Insulin Detemir Inj 1,000 UNIT/10 ML Vial SQ SCH (08:31)
[2017-11-16] MEDS: Insulin NovoLIN Regular Correctional Sugar Inj SQ SCH ×2 (08:31→12:09)
[2017-11-16] MEDS: Chlorhexidine Gluconate 0.12% Liq 15 ML UDC SWISH-SPIT SCH (08:31)
[2017-11-16] MEDS ORDERED: QUEtiapine 100 MG Tablet PO SCH (09:00)
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
--- NOTE | 2017-11-16 12:15 | P.TTN ---
- Patient Problems Problems: 1. Discharge planning 2. Medication compliance 3. Knowledge deficit 4. Lack of coping skills - Progress Toward Goals Provider Present: Dr. Sanam Jesus Provider Input: Patient is stable on medication, will be taken to [facility] court to ensure a safe dc plan in put into place. Nurse(s) Present: MATTHIAS Juan Nurse Input: Patient is eating meals and taking her medication, very unmotiviated Psychiatric Counselors Present: Shadia Barry [facility] Psychiatric Therapist Input: Counselor has offered patient [facility], long term and [facility] as options for placement; however patient has refused placement stating she will find her own placement when dc. Counselor will therefore ensure patient is linked with a mental health and medical provider prior to dc ( [facility] and [facility]). - Documentation Teaching Recipient: Patient
== END 2017-11-16 13:35 | disposition home or self-care (01) ==
LOC: NEDAMB 20:51 → NEDA 11-07 15:55 → H270 11-07 18:04 → H4EA 11-09 13:08
PROVIDERS: ADMIT Student in an Organized Health Care Education/Training Program; ATTEND Student in an Organized Health Care Education/Training Program

== ENCOUNTER 2017-11-24 15:45 | Inpatient (IN) ==
[2017-11-24] MEDS ORDERED: Sod Chloride 0.9% Inj 1,000 ML IV.SIG SCH (20:15)
--- NOTE | 2017-11-24 20:19 | ED ---
HPI General Chief complaint: Abdominal Pain Stated complaint: Medical clearance Time Seen by Provider: 11/24/17 20:03 History of Present Illness HPI narrative: This is a 47-year-old female with history of diabetes who presents for management of her diabetes. She is concerned that her blood sugar may be high. She reports that she has been out of all of her diabetes medications of which she does not recall the names at this time. She reports that they are available for pickup at the [facility] but she did not have a ride there today. She is also complaining of skin lesions in both breasts as well as the left leg which have been present for 3 years. She reports that in the past she was diagnosed with MRSA and she is concerned that these may be MRSA. Symptoms are moderate, duration unknown, symptoms aggravated by medication noncompliance. She has no other complaints at this time. Related Data Home Medications Medication Instructions Recorded Confirmed Unable to Obtain Home Meds 11/06/17 11/06/17 Previous Rx's Medication Instructions Recorded chlorhexidine gluconate 15 ml SWISH-SPIT BID #1 bottle 11/10/17 insulin detemir U-100 [Levemir 8 unit SUB-Q BID #1 vial 11/10/17 U-100 Insulin] metformin [Glucophage] 500 mg PO BIDPC #60 tab 11/10/17 mupirocin calcium [Bactroban Nasal] 1 applicatio INTRANASAL BID #1 tube 11/10/17 quetiapine 100 mg PO BID 30 Days #60 tab 11/16/17 Allergies Allergy/AdvReac Type Severity Reaction Status Date / Time No Known Allergies Allergy Verified 11/06/17 21:32 Review of Systems ROS: all other systems reviewed are negative [facility] Medical History Medical History Hypertension (Acute) Type 2 diabetes mellitus (Chronic) Surgical History Surgical History No history of previous surgery (Acute) Family History Family History Father Diabetes Social History Social History Substance History: No History of Abuse Second Hand Smoke Exposure: No Smoking Status: Never smoker How Often Do You Have a Drink Containing Alcohol: Never Recent Travel in [place] within the Last 8 Weeks: No Recent Out of Country Travel within the Last 8 Weeks: No Immunization History Tetanus Immunization: Unsure Exam Narrative Exam Narrative: Examined in the presence of a female nurse GENERAL: Well-developed well-nourished female no acute distress SKIN: Warm and dry. Old appearing excoriated lesions on the breasts and left vera. There is no erythema, no induration, no fluctuance or drainage. HEAD: Atraumatic. Normocephalic. EYES: Pupils equal and round. No scleral icterus. No injection or drainage. ENT: No nasal bleeding or discharge. Mucous membranes pink and moist. NECK: Trachea midline. No JVD. CARDIOVASCULAR: Regular rate and rhythm. No murmur appreciated. RESPIRATORY: No accessory muscle use. Clear to auscultation. Breath sounds equal bilaterally. GASTROINTESTINAL: Abdomen soft, non-tender, nondistended. Hepatic and splenic margins not palpable. MUSCULOSKELETAL: No obvious deformities. No clubbing. No cyanosis. No edema. NEUROLOGICAL: Awake and alert. No obvious cranial nerve deficits. Motor grossly within normal limits. Normal speech. PSYCHIATRIC: Somewhat paranoid, insight and judgment appear reasonable. Course Initial Documented Vital Signs Temperature 97.9 F 11/24/17 17:11 Pulse Rate 118 H 11/24/17 17:11 Respiratory Rate 16 11/24/17 17:11 Blood Pressure 162/90 H 11/24/17 17:11 Pulse Oximetry 100 11/24/17 17:11 Last Documented Vital Signs Temperature 97.9 F 11/24/17 17:11 Pulse Rate 80 11/24/17 22:36 Respiratory Rate 16 11/24/17 22:36 Blood Pressure 132/74 11/24/17 22:36 Pulse Oximetry 97 11/24/17 22:36 Medical Decision Making MDM Narrative Medical decision making narrative: Lab work has been ordered. Patient was given normal saline bolus. On examination the patient is somewhat paranoid, making many comments about her sister being unfair to her. Per chart review the patient was recently seen here for several days for unspecified psychosis. I did offer to place a psychiatric screening but the patient is declining and she does not meet Pacheco act criteria. Lab work is been reviewed with the patient has a chronic microcytic anemia. Her blood sugars 287. She was given normal saline, 5 units of insulin. The patient's blood sugar is improved to 170. She is stable for discharge. [facility]. Patient was preparing for discharge and stated that she wanted to see psychiatric screener psychiatric screening was performed patient is not suicidal and not homicidal. Patient is medically cleared for outpatient management. Medical Screen Exam Complete: Yes Emergency Medical Condition: Yes Differential Diagnosis Differential Diagnosis: Diabetes, medication noncompliance, acute psychosis, DKA , dehydration, homelessness Lab Data Result diagrams: 11/24/17 20:20 11/24/17 20:20 Lab Results 11/24/17 11/24/17 11/24/17 Range/Units 20:20 20:20 21:20 WBC 6.7 (4.0-11.0) th/mm3 RBC 4.80 (4.00-5.30) mil/mm3 Hgb 9.7 L (11.6-15.3) gm/dL Hct 31.7 L (35.0-46.0) % MCV 66.0 L (80.0-100.0) fL MCH 20.3 L (27.0-34.0) pg MCHC 30.7 L (32.0-36.0) % RDW 18.6 H (11.6-17.2) % Plt Count 323 (150-450) th/mm3 MPV 8.6 (7.0-11.0) fL Neut % (Auto) 61.4 (16.0-70.0) % Lymph % (Auto) 29.1 (9.0-44.0) % [place] % (Auto) 8.7 H (0.0-8.0) % Eos % (Auto) 0.1 (0.0-4.0) % Baso % (Auto) 0.7 (0.0-2.0) % Neut # (Auto) 4.1 (1.8-7.7) th/mm3 Lymph # (Auto) 2.0 (1.0-4.8) th/mm3 [place] # (Auto) 0.6 (0.0-0.9) th/mm3 Eos # (Auto) 0.0 (0.0-0.4) th/mm3 Baso # (Auto) 0.0 (0.0-0.2) th/mm3 WBC Differential . Differential Comment Auto diff final Sodium 138 (136-145) meq/L Potassium 3.5 (3.5-5.1) meq/L Chloride 103 (98-107) meq/L Carbon Dioxide 24.8 (21.0-32.0) meq/L Anion Gap 10 (5-15) meq/L BUN 20 H (7-18) mg/dL Creatinine 0.66 (0.50-1.00) mg/dL Estimated GFR Greater than 89 (>89) mL/min POC Glucose (68-110) mg/dl Random Glucose 287 H (74-106) mg/dL Calcium 8.7 (8.5-10.1) mg/dL Total Bilirubin 0.4 (0.2-1.0) mg/dL AST 10 L (15-37) U/L ALT 15 (10-53) U/L Alkaline Phosphatase 105 (45-117) U/L Total Protein 7.0 (6.4-8.2) g/dL Albumin 3.6 (3.4-5.0) g/dL TSH 2.540 (0.358-3.740) uIU/mL Urine Color (Yellw/Straw) Urine Clarity (Clear) Urine pH (5.0-8.5) Ur Specific [place] (1.002-1.035) Urine Protein (Neg-Trace) mg/dL Urine Glucose (UA) (Negative) mg/dL Urine Ketones (Negative) mg/dL Urine Occult Blood (Negative) Urine Nitrate (Negative) Urine Bilirubin (Negative) Urine Urobilinogen (Less than 2) mg/dL Ur Leukocyte Esterase (Negative) Urine WBC (0-5) /hpf Ur Squamous Epith Cells (0-5) /hpf Urine Mucus (Occasional) /lpf Micro UA Comment Ur Microscopic Review Urine Culture Comments Urine Opiates Screen Neg (Neg) Ur Barbiturates Screen Neg (Neg) Ur Amphetamines Screen Neg (Neg) U Benzodiazepines Scrn Neg (Neg) Urine Cocaine Screen Neg (Neg) U Cannabinoids Screen Neg (Neg) Serum Alcohol Less than 3 (0-5) mg/dL 11/24/17 11/24/17 Range/Units 21:20 22:36 WBC (4.0-11.0) th/mm3 RBC (4.00-5.30) mil/mm3 Hgb (11.6-15.3) gm/dL Hct (35.0-46.0) % MCV (80.0-100.0) fL MCH (27.0-34.0) pg MCHC (32.0-36.0) % RDW (11.6-17.2) % Plt Count (150-450) th/mm3 MPV (7.0-11.0) fL Neut % (Auto) (16.0-70.0) % Lymph % (Auto) (9.0-44.0) % [place] % (Auto) (0.0-8.0) % Eos % (Auto) (0.0-4.0) % Baso % (Auto) (0.0-2.0) % Neut # (Auto) (1.8-7.7) th/mm3 Lymph # (Auto) (1.0-4.8) th/mm3 [place] # (Auto) (0.0-0.9) th/mm3 Eos # (Auto) (0.0-0.4) th/mm3 Baso # (Auto) (0.0-0.2) th/mm3 WBC Differential Differential Comment Sodium (136-145) meq/L Potassium (3.5-5.1) meq/L Chloride (98-107) meq/L Carbon Dioxide (21.0-32.0) meq/L Anion Gap (5-15) meq/L BUN (7-18) mg/dL Creatinine (0.50-1.00) mg/dL Estimated GFR (>89) mL/min POC Glucose 178 H (68-110) mg/dl Random Glucose (74-106) mg/dL Calcium (8.5-10.1) mg/dL Total Bilirubin (0.2-1.0) mg/dL AST (15-37) U/L ALT (10-53) U/L Alkaline Phosphatase (45-117) U/L Total Protein (6.4-8.2) g/dL Albumin (3.4-5.0) g/dL TSH (0.358-3.740) uIU/mL Urine Color Yellow (Yellw/Straw) Urine Clarity Hazy H (Clear) Urine pH 5.0 (5.0-8.5) Ur Specific [place] 1.033 (1.002-1.035) Urine Protein Negative (Neg-Trace) mg/dL Urine Glucose (UA) 500 or greater (Negative) mg/dL Urine Ketones Trace H (Negative) mg/dL Urine Occult Blood Negative (Negative) Urine Nitrate Negative (Negative) Urine Bilirubin Negative (Negative) Urine Urobilinogen Less than 2 (Less than 2) mg/dL Ur Leukocyte Esterase Negative (Negative) Urine WBC 4 (0-5) /hpf Ur Squamous Epith Cells 3 (0-5) /hpf Urine Mucus Few H (Occasional) /lpf Micro UA Comment Culture not ind Ur Microscopic Review Not Reportable Urine Culture Comments Culture not ind Urine Opiates Screen (Neg) Ur Barbiturates Screen (Neg) Ur Amphetamines Screen (Neg) U Benzodiazepines Scrn (Neg) Urine Cocaine Screen (Neg) U Cannabinoids Screen (Neg) Serum Alcohol (0-5) mg/dL Discharge Plan Discharge Disposition Patient Disposition: 01 Discharge Home Discharge Condition Condition: Stable Discharge Order Discharge Orders: Discharge Order (Routine); Ordered 11/24/17 Ordered By: Sergio Barillas Discharge Details Diagnosis: Hyperglycemia due to type 2 diabetes mellitus Physicians Team ED Provider: Amy Rodriguez ED Midlevel Provider: Sergio Barillas Primary Care Provider: UNKNOWN, Rxs /Orders / Referrals /Forms Prescriptions: No Action Unable to Obtain Home Meds RF: 0 metformin [Glucophage] 500 mg Tablet 500 mg PO BIDPC Qty: 60 RF: 0 mupirocin calcium [Bactroban Nasal] 2 % Ointment 1 applicatio Intranasal BID Qty: 1 RF: 0 insulin detemir U-100 [Levemir U-100 Insulin] 100 unit/mL Solution 8 unit Sub-Q BID Qty: 1 RF: 0 chlorhexidine gluconate 0.12 % Mouthwash 15 ml SWISH-SPIT BID Qty: 1 RF: 0 quetiapine 100 mg Tablet 100 mg PO BID 30 Days Qty: 60 RF: 0 Discharge Instructions Patient Printed Instructions: Diabetic Hyperglycemia (ED) Additional Instructions: As discussed, brain picker your medications tomorrow at [facility]. Follow-up with a primary care physician. Return for any emergent medical conditions. Status ED Status: Medically Cleared Addendum entered and electronically signed by EDOUARD Corado 11/24/17 23:01 : As the patient was being discharged she became increasingly agitated, somewhat disorganized speech pattern, certainly paranoid, now agreeable to seeing psychiatry so a psychiatric screening has been ordered. The patient is medically cleared.
[2017-11-24 20:44] LABS: Baso % (Auto) 0.7 % (0.0-2.0); Eos % (Auto) 0.1 % (0.0-4.0); Hematocrit 31.7 % (35.0-46.0); Hemoglobin 9.7 gm/dL (11.6-15.3); Lymph % (Auto) 29.1 % (9.0-44.0); Mean Corpuscular Hemoglobin 20.3 pg (27.0-34.0); Mean Platelet Volume 8.6 fL (7.0-11.0); Mono # (Auto) 0.6 th/mm3 (0.0-0.9); Mono % (Auto) 8.7 % (0.0-8.0); Neut # (Auto) 4.1 th/mm3 (1.8-7.7); Neut % (Auto) 61.4 % (16.0-70.0); Platelet Count 323 th/mm3 (150-450); Red Cell Distribution Width 18.6 % (11.6-17.2); White Blood Count 6.7 th/mm3 (4.0-11.0)
[2017-11-24 20:51] LABS: Mean Corpuscular HGB Conc 30.7 % (32.0-36.0)
[2017-11-24 21:13] LABS: Albumin 3.6 g/dL (3.4-5.0); Anion Gap 10 meq/L (5-15); Aspartate Aminotransferase 10 U/L (15-37); Blood Urea Nitrogen 20 mg/dL (7-18); Calcium 8.7 mg/dL (8.5-10.1); Carbon Dioxide 24.8 meq/L (21.0-32.0); Chloride 103 meq/L (98-107); Glomerular Filtration Rate Greater Than 89 mL/min (>89); Glucose,Random 287 mg/dL (74-106); Potassium 3.5 meq/L (3.5-5.1); Sodium 138 meq/L (136-145)
[2017-11-24 21:14] LABS: Alanine Aminotransferase 15 U/L (10-53)
[2017-11-24 21:24] LABS: Alkaline Phosphatase 105 U/L (45-117)
[2017-11-24 21:39] LABS: Amphetamine Screen,Urine Neg (Neg); Barbiturate Screen,Urine Neg (Neg); Cannabinoid Screen,Urine Neg (Neg); Cocaine Screen,Urine Neg (Neg)
[2017-11-24 21:43] LABS: Bilirubin,Urine Negative (Negative); Clarity,Urine Hazy (Clear); Color,Urine Yellow (Yellw/Straw); Glucose,Urine (UA) 500 or Greater mg/dL (Negative); Leukocyte Esterase,Urine Negative (Negative); Mucus,Urine Few /lpf (Occasional); Nitrite,Urine Negative (Negative); Specific Gravity,Urine 1.033 (1.002-1.035); Squamous Epithelial Cell,Urine 3 /hpf (0-5)
[2017-11-24 21:53] LABS: Opiate Screen,Urine Neg (Neg)
[2017-11-25] MEDS ORDERED: Benztropine Inj 2 MG/2 ML Ampul IM PRN (09:13)
[2017-11-25] MEDS ORDERED: Aluminum/Magnesium/Simethacone Susp 30 ML UDC PO PRN (09:13)
[2017-11-25] MEDS ORDERED: Melatonin 5 MG Tablet PO PRN (09:13)
[2017-11-25] MEDS ORDERED: Acetaminophen 325 MG Tablet PO PRN (09:13)
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
[2017-11-25] MEDS ORDERED: Dextrose 50% in Water 50 ML Vial IV.PUSH PRN (09:15)
[2017-11-25] MEDS: Insulin NovoLOG Aspart Correctional Sugar Inj SQ SCH ×3 (13:07→21:25)
--- NOTE | 2017-11-25 19:52 | P.PNPSY ---
Subjective Chief Complaint: Psychosis Remarks: This is a request for second opinion. Admission note was reviewed and I agree with the history. Patient was seen and case was discussed with nursing. Patient has very poor insight into her admission. She has had various behavioral outburst today. Per nursing, she threw her dinner tray on the floor and during my interview her room was full of pieces of food. As well, she was stripping throughout the day in an oppositional manner. She is perseverative on the doctor that admitted her here from the ER. Responding to internal stimuli Mental Status Examination Appearance: Dirty, Disheveled, Malodorous Consciousness: Alert Orientation: Person, Place (At least) Motor Activity: Other (No motor abnormalities noted) Speech: Rapid Language: Perseveration Fund of Knowledge: Adequate Attention and Concentration: Easily distracted Memory: Impaired (Psychosis interferes) Mood: Oppositional, Irritable Affect: Irritable, Labile Thought Process & Associations: Tangential Thought Content: Delusional Hallucination Type: None (Denies AVH but does appears somewhat internally stimulated) Delusion Type: Paranoid Suicidal Ideation: No Suicidal Plan: No Suicidal Intention: No Homicidal Ideation: No Homicidal Plan: No Homicidal Intention: No Insight: Poor Judgment: Poor Assessment and Plan - Assessment (1) Unspecified psychosis Code(s): F29 - Unspecified psychosis not due to a substance or known physiological condition Status: Acute - Plan Plan: I agree with the first opinion to continue petition. Criteria include acute psychosis Justification for Continued Inpatient Stay: Patient would decompensate in a less restrictive setting Request Healthcare Surrogate/Guardian Advocate?: No (1) Unspecified psychosis Qualifiers: Psychosis type: brief psychotic disorder Qualified Code(s): F23 - Brief psychotic disorder
[2017-11-25] MEDS: QUEtiapine 100 MG Tablet PO SCH (21:24)
[2017-11-25] MEDS: Chlorhexidine Gluconate 0.12% Liq 15 ML UDC SWISH-SPIT SCH (21:25)
[2017-11-25] MEDS: Mupirocin 2% Nasal Oint Topical Syringe EACH NARE SCH (21:25)
[2017-11-25] MEDS: Insulin Detemir Inj 1,000 UNIT/10 ML Vial SQ SCH (21:25)
[2017-11-26 08:42] LABS: Baso % (Auto) 0.7 % (0.0-2.0); Eos % (Auto) 0.1 % (0.0-4.0); Hematocrit 30.5 % (35.0-46.0); Hemoglobin 9.5 gm/dL (11.6-15.3); Lymph # (Auto) 1.1 th/mm3 (1.0-4.8); Lymph % (Auto) 28.8 % (9.0-44.0); Mean Corpuscular HGB Conc 31.2 % (32.0-36.0); Mean Corpuscular Hemoglobin 20.7 pg (27.0-34.0); Mean Corpuscular Volume 66.3 fL (80.0-100.0); Mean Platelet Volume 8.5 fL (7.0-11.0); Mono # (Auto) 0.3 th/mm3 (0.0-0.9); Mono % (Auto) 9.5 % (0.0-8.0); Neut # (Auto) 2.2 th/mm3 (1.8-7.7); Neut % (Auto) 60.9 % (16.0-70.0); Platelet Count 235 th/mm3 (150-450); Red Cell Distribution Width 18.2 % (11.6-17.2); White Blood Count 3.7 th/mm3 (4.0-11.0)
[2017-11-26] MEDS: Chlorhexidine Gluconate 0.12% Liq 15 ML UDC SWISH-SPIT SCH ×2 (09:00→22:53)
[2017-11-26] MEDS: Insulin Detemir Inj 1,000 UNIT/10 ML Vial SQ SCH (09:00)
[2017-11-26] MEDS: Mupirocin 2% Nasal Oint Topical Syringe EACH NARE SCH ×2 (09:00→22:53)
[2017-11-26] MEDS: QUEtiapine 100 MG Tablet PO SCH (09:08)
[2017-11-26] MEDS: Insulin NovoLOG Aspart Correctional Sugar Inj SQ SCH ×3 (09:17→22:51)
[2017-11-26 09:21] LABS: Anion Gap 9 meq/L (5-15); Blood Urea Nitrogen 7 mg/dL (7-18); Calcium 7.9 mg/dL (8.5-10.1); Carbon Dioxide 29.2 meq/L (21.0-32.0); Chloride 107 meq/L (98-107); Chol/HDL Ratio 5.16 Ratio; Cholesterol 143 mg/dL (120-200); Glomerular Filtration Rate Greater Than 89 mL/min (>89); Glucose,Random 186 mg/dL (74-106); HDL Cholesterol 27.7 mg/dL (40.0-60.0); LDL Cholesterol,Calculated 80 mg/dL (0-99); Potassium 3.4 meq/L (3.5-5.1); Sodium 145 meq/L (136-145); Triglycerides 177 mg/dL (42-150)
--- NOTE | 2017-11-26 10:12 | P.PNPSY ---
Subjective Chief Complaint: Psychosis Remarks: Reviewed electronic medical records and discussed case with staff. Follow-up was conducted in the patient's room with MATTHIAS Denis. Patient is lying in her bed with the covers over her head, she states," I cannot get out of bed I have MRSA and I am sick." She is dishevel and wrapped up in her bed linens. Nursing reports that she was oppositional yesterday , yelling and out in the common area with her gown open and legs spread. She has no insight to her personal surroundings. Yesterday she threw her dinner tray , but today the staff is not witnessing any behavioral concerns. She has skipped meals and staff is encouraging her to consume fluids. Review of Systems All other systems reviewed negative except as stated in HPI Mental Status Examination Appearance: Dirty, Disheveled, Malodorous Consciousness: Alert Orientation: Person, Place (At least) Motor Activity: Other (No motor abnormalities noted) Speech: Unremarkable Language: Perseveration Fund of Knowledge: Adequate Attention and Concentration: Easily distracted Memory: Impaired (Psychosis interferes) Mood: Sad, Oppositional, Irritable Affect: Irritable, Labile Thought Process & Associations: Tangential Thought Content: Delusional Hallucination Type: None (Denies AVH but does appears somewhat internally stimulated) Delusion Type: Paranoid Suicidal Ideation: No Suicidal Plan: No Suicidal Intention: No Homicidal Ideation: No Homicidal Plan: No Homicidal Intention: No Insight: Poor Judgment: Poor Assessment and Plan - Assessment (1) Acute exacerbation of psychosis Code(s): F29 - Unspecified psychosis not due to a substance or known physiological condition Status: Acute - Plan Plan: Patient is stable. Plan of care unchanged. She will see her psychiatrist on Monday. Justification for Continued Inpatient Stay: Moving patient to a less restrictive environment may result in her decompensation. Request Healthcare Surrogate/Guardian Advocate?: No
[2017-11-26 13:42] LABS: Hemoglobin A1c 11.7 % (4.3-6.0)
[2017-11-27] MEDS: QUEtiapine 100 MG Tablet PO SCH ×4 (06:41→21:40)
[2017-11-27] MEDS: Insulin Detemir Inj 1,000 UNIT/10 ML Vial SQ SCH ×3 (06:41→21:40)
[2017-11-27] MEDS: Insulin NovoLOG Aspart Correctional Sugar Inj SQ SCH ×4 (07:53→21:38)
[2017-11-27] MEDS: Mupirocin 2% Nasal Oint Topical Syringe EACH NARE SCH ×2 (08:28→21:40)
[2017-11-27] MEDS: Chlorhexidine Gluconate 0.12% Liq 15 ML UDC SWISH-SPIT SCH ×2 (08:28→21:40)
--- NOTE | 2017-11-27 11:33 | P.PNPSY ---
Subjective Chief Complaint: Psychosis Remarks: Patient seen and examined with nurse and counselor. Chart reviewed. Case discussed with nursing staff who reports patient is seclusive to room and has not showered. Case discussed with counselor who will reach out to patient's niece for collateral information. On my examination today, the patient presents as malodorous and disheveled. I have encouraged her to shower today. She remains somatically preoccupied and paranoid in particular regarding her niece. She says "Jodi is dubbing me. She's still talking to me." She tells me "I have to go to the ER to get MRSA and diabetes IV!" Patient has been refusing Accu-Cheks per nursing staff. Denies side effects from medications. No physical complaints. Vital Signs Temp Pulse Resp BP Pulse Ox 11/27/17 06:08 97.2 F L 88 16 126/70 100 Laboratory Results - last 24 hr 11/26/17 11/26/17 11/27/17 07:05 22:35 11:20 POC Glucose 174 H 151 H Hemoglobin A1c 11.7 H Labs reviewed. Stable microcytic anemia. Mild hypokalemia. Repleted. Mild leukopenia noted without granulocytopenia. Review of Systems All other systems reviewed negative except as stated in HPI (Limitation: Psychosis) Mental Status Examination Appearance: Disheveled, Malodorous Consciousness: Alert Orientation: Person, Place (At least) Motor Activity: Other (No abnormal motor movements noted) Speech: Unremarkable Language: Perseveration Fund of Knowledge: Adequate Attention and Concentration: Easily distracted Memory: Impaired (Psychosis interferes) Mood: Oppositional, Irritable Affect: Irritable, Labile Thought Process & Associations: Tangential Thought Content: Delusional Hallucination Type: None (Denies AVH but still is somewhat internally stimulated ) Delusion Type: Paranoid, Somatic Suicidal Ideation: No Suicidal Plan: No Suicidal Intention: No Homicidal Ideation: No Homicidal Plan: No Homicidal Intention: No Insight: Poor Judgment: Poor Assessment and Plan - Assessment (1) Unspecified psychosis Code(s): F29 - Unspecified psychosis not due to a substance or known physiological condition Status: Acute - Plan Plan: Titrate Seroquel to 200 mg twice daily to target psychotic symptoms. Check iron studies. Replete potassium. No indication in the ED provider's notes of active MRSA issues. Continue to monitor on high acuity unit. Continue other medications and care as ordered. Justification for Continued Inpatient Stay: Medication changes. Impairment in reality construction. High risk for decompensation in less restrictive environment. Discharge Planning: Pending psychiatric stabilization. Request Healthcare Surrogate/Guardian Advocate?: No (1) Unspecified psychosis Qualifiers: Psychosis type: brief psychotic disorder Qualified Code(s): F23 - Brief psychotic disorder
[2017-11-27] MEDS: Ferrous Sulfate 325 MG Tablet PO SCH (17:09)
[2017-11-28] MEDS: Insulin NovoLOG Aspart Correctional Sugar Inj SQ SCH ×4 (07:47→20:06)
[2017-11-28] MEDS: QUEtiapine 100 MG Tablet PO SCH (08:32)
[2017-11-28] MEDS: Chlorhexidine Gluconate 0.12% Liq 15 ML UDC SWISH-SPIT SCH ×2 (08:32→20:07)
[2017-11-28] MEDS: Insulin Detemir Inj 1,000 UNIT/10 ML Vial SQ SCH ×2 (08:33→20:06)
[2017-11-28] MEDS: Mupirocin 2% Nasal Oint Topical Syringe EACH NARE SCH ×2 (08:33→20:07)
--- NOTE | 2017-11-28 10:08 | P.PNPSY ---
Subjective Chief Complaint: Psychosis Remarks: Patient seen and examined with nurse and counselor. Chart reviewed. Case discussed with nursing staff. Hygiene remains poor. Patient was cursing at staff when they were trying to change her linens and assist her with hygiene. Case discussed in treatment team. Counselor reports that patient was not able to provide any numbers for collateral information. On my examination today, the patient remains floridly psychotic. She believes that her niece Jodi is in the hallway saying "malignant things." She denies any SI or HI. She remains quite paranoid. She denies side effects from medications. No physical complaints. She is able to provide the number for her mother Ayesha, and gives us permission to call mother. After interview, patient becomes acutely agitated and yelling because environmental staff attempted to clean her room. Spoke with Ayesah, patient has had psychotic illness "for years and years." [facility] but moved up to [facility] against mother's wished. Mother thinks she needs to be placed in [facility]. "She doesn't think she needs the medications but she does." Mother gives contact info for other daughter Tamanna [phone]. Vital Signs Temp Pulse Resp BP Pulse Ox 11/28/17 05:25 97.4 F L 88 18 124/67 99 11/27/17 20:00 16 Laboratory Results - last 24 hr 11/27/17 11/27/17 11/27/17 11:20 14:51 16:53 POC Glucose 151 H 128 H Iron 11 L TIBC 368 % Saturation 3.0 L Ferritin 6 L 11/27/17 11/28/17 20:12 06:02 POC Glucose 169 H 171 H Iron TIBC % Saturation Ferritin Labs reviewed. Iron supplement started. Review of Systems All other systems reviewed negative except as stated in HPI Mental Status Examination Appearance: Disheveled, Malodorous Consciousness: Alert Orientation: Person, Place (At least) Motor Activity: Other (No motor abnormalities noted) Speech: Unremarkable Language: Perseveration Fund of Knowledge: Adequate Attention and Concentration: Easily distracted Memory: Impaired (Psychosis interferes) Mood: Oppositional, Irritable Affect: Labile Thought Process & Associations: Tangential Thought Content: Delusional Hallucination Type: Other (Int stim) Delusion Type: Paranoid Suicidal Ideation: No Suicidal Plan: No Suicidal Intention: No Homicidal Ideation: No Homicidal Plan: No Homicidal Intention: No Insight: Poor Judgment: Poor Assessment and Plan - Assessment (1) Schizophrenia Code(s): F20.9 - Schizophrenia, unspecified Status: Acute - Plan Plan: Titrate Seroquel to 200mg qAM and 300mg qHS to target psychosis. Continue to monitor on high acuity unit. Continue other medications and care as ordered. Justification for Continued Inpatient Stay: Medication changes. Impairment in reality construction. High risk for decompensation in less restrictive environment. Discharge Planning: Pending psychiatric stabilization. Possible placement. Request Healthcare Surrogate/Guardian Advocate?: No (1) Schizophrenia Qualifiers: Schizophrenia type: paranoid schizophrenia Qualified Code(s): F20.0 - Paranoid schizophrenia
[2017-11-28] MEDS: Ferrous Sulfate 325 MG Tablet PO SCH ×2 (11:33→17:02)
[2017-11-29] MEDS: Insulin NovoLOG Aspart Correctional Sugar Inj SQ SCH ×4 (08:09→20:45)
[2017-11-29] MEDS: Insulin Detemir Inj 1,000 UNIT/10 ML Vial SQ SCH ×2 (08:09→20:44)
--- NOTE | 2017-11-29 10:06 | P.PNPSY ---
Subjective Chief Complaint: Psychosis Remarks: Patient seen and examined with nurse. Chart reviewed. Case discussed with nursing staff. Patient reportedly remains fairly psychotic. On my examination today, the patient remains quite paranoid and irritable. When I discuss collateral information obtained from patient's mother the patient begins ranting that her mother is jealous of the patient and lying to this provider. Patient tells me "tell them to shut their fucking mouths! They're studying me! " Denies side effects from medications. No physical complaints. Refuses [facility] placement saying "I do not like to be with the general public." Vital Signs Temp Pulse Resp BP Pulse Ox 11/29/17 06:16 97.3 F L 84 16 158/86 H 99 Laboratory Results - last 24 hr 11/28/17 11/28/17 11/29/17 16:25 19:56 06:09 POC Glucose 142 H 166 H 166 H 11/29/17 11:31 POC Glucose 159 H Labs reviewed. Review of Systems All other systems reviewed negative except as stated in HPI Mental Status Examination Appearance: Disheveled Consciousness: Alert Orientation: Person, Place (At least) Motor Activity: Other (No abnormal motor movements noted) Speech: Unremarkable Language: Perseveration Fund of Knowledge: Adequate Attention and Concentration: Easily distracted Memory: Impaired (Psychosis interferes) Mood: Angry, Oppositional, Irritable Affect: Labile Thought Process & Associations: Tangential Thought Content: Delusional Hallucination Type: Other (Internally stimulated) Delusion Type: Paranoid Suicidal Ideation: No Suicidal Plan: No Suicidal Intention: No Homicidal Ideation: No Homicidal Plan: No Homicidal Intention: No Insight: Poor Judgment: Poor Assessment and Plan - Assessment (1) Schizophrenia Code(s): F20.9 - Schizophrenia, unspecified Status: Acute - Plan Plan: Titrate Seroquel to 200 mg in the morning and 400 mg at bedtime to target residual psychotic symptoms. Continue to monitor on the high acuity unit. Continue other medications and care as ordered. Justification for Continued Inpatient Stay: Medication changes. Impairment in reality construction. High risk for decompensation in less restrictive environment. Discharge Planning: Pending psychiatric stabilization. Possible placement. Request Healthcare Surrogate/Guardian Advocate?: No (1) Schizophrenia Qualifiers: Schizophrenia type: paranoid schizophrenia Qualified Code(s): F20.0 - Paranoid schizophrenia
[2017-11-29] MEDS: Ferrous Sulfate 325 MG Tablet PO SCH (11:50)
[2017-11-29] MEDS: Mupirocin 2% Nasal Oint Topical Syringe EACH NARE SCH ×2 (12:02→20:44)
[2017-11-29] MEDS: Chlorhexidine Gluconate 0.12% Liq 15 ML UDC SWISH-SPIT SCH ×2 (12:02→20:44)
[2017-11-30] MEDS: Chlorhexidine Gluconate 0.12% Liq 15 ML UDC SWISH-SPIT SCH ×3 (08:06→20:50)
[2017-11-30] MEDS: Mupirocin 2% Nasal Oint Topical Syringe EACH NARE SCH ×3 (08:07→20:49)
[2017-11-30] MEDS: Insulin Detemir Inj 1,000 UNIT/10 ML Vial SQ SCH ×2 (08:13→20:43)
[2017-11-30] MEDS: Insulin NovoLOG Aspart Correctional Sugar Inj SQ SCH ×3 (08:13→20:42)
--- NOTE | 2017-11-30 11:26 | P.PNPSY ---
Subjective Chief Complaint: Psychosis Remarks: Patient seen and case discussed with nursing staff. Chart reviewed. For me today, the patient remains quite delusional. She believes that staff are "polluting" her. She remains quite paranoid about her family and believes that they are present in the hospital. No evident side effects from medications. No physical complaints. Vital Signs Temp Pulse Resp BP Pulse Ox 11/30/17 05:58 97.9 F 95 H 17 146/64 H 100 Laboratory Results - last 24 hr 11/29/17 11/30/17 11/30/17 19:36 06:28 08:09 POC Glucose 166 H 167 H 216 H 11/30/17 12:11 POC Glucose 211 H Labs reviewed. Review of Systems other (Limited ROS today) Mental Status Examination Appearance: Disheveled Consciousness: Alert Orientation: Person, Place (At least) Motor Activity: Other (No motor abnormalities noted) Speech: Unremarkable Language: Perseveration Fund of Knowledge: Adequate Attention and Concentration: Easily distracted Memory: Impaired (Psychosis interferes) Mood: Angry, Oppositional, Irritable Affect: Labile Thought Process & Associations: Tangential Thought Content: Delusional Hallucination Type: None Delusion Type: Paranoid (Remains quite paranoid) Suicidal Ideation: No Homicidal Ideation: No Insight: Poor Judgment: Poor Assessment and Plan - Assessment (1) Schizophrenia Code(s): F20.9 - Schizophrenia, unspecified Status: Acute - Plan Plan: Titrate Seroquel to 250 mg in the morning and 400 mg at bedtime to target psychotic symptoms. Continue to monitor on the inpatient unit. Continue other medications and care as ordered. Patient may require placement. I will request PT/OT eval. Patient's case was presented to the [place] and the patient was retained on the unit by the [employer]hol[employer] with [facility] guardian. Justification for Continued Inpatient Stay: Medication changes. Impairment in reality construction. High risk for decompensation in less restrictive environment. Discharge Planning: Placement versus state psychiatric hospitalization. I will go ahead and initiate a state psychiatric hospital referral as the counselor feels confident that the patient will sabotage any efforts at placement. Request Healthcare Surrogate/Guardian Advocate?: No (1) Schizophrenia Qualifiers: Schizophrenia type: paranoid schizophrenia Qualified Code(s): F20.0 - Paranoid schizophrenia
[2017-11-30] MEDS: Ferrous Sulfate 325 MG Tablet PO SCH ×2 (12:31→17:18)
[2017-12-01] MEDS: Insulin NovoLOG Aspart Correctional Sugar Inj SQ SCH ×4 (07:40→21:51)
[2017-12-01] MEDS ORDERED: QUEtiapine 100 MG Tablet PO SCH (09:00)
[2017-12-01] MEDS: Insulin Detemir Inj 1,000 UNIT/10 ML Vial SQ SCH ×2 (09:14→21:55)
[2017-12-01] MEDS: Mupirocin 2% Nasal Oint Topical Syringe EACH NARE SCH ×2 (09:17→21:57)
[2017-12-01] MEDS: Chlorhexidine Gluconate 0.12% Liq 15 ML UDC SWISH-SPIT SCH ×2 (09:29→21:55)
--- NOTE | 2017-12-01 10:21 | P.PNPSY ---
Subjective Chief Complaint: Psychosis Remarks: Patient seen and examined with nurse and counselor. Chart reviewed. Case discussed with nursing staff. Case discussed in treatment team. On my examination today, the patient remains delusional. She is a little less irritable and explosive. She believes that she is weekend from a MRSA or perhaps Staph infection. She demonstrates an area in her right axilla that she believes is contaminated with this contagion, but there is no sign of infection or any lesion for that matter in the area indicated. She believes that this MRSA is sexually transmitted and has spread all over her body and is now found primarily in her vagina. She remains paranoid regarding her family. No side effects from medications. No physical complaints. Received message from patient's mother/HCS. I spoke with her over the phone. We discuss patient's current status and discharge planning, including possible state hospitalization. Vital Signs Temp Pulse Resp BP Pulse Ox 12/01/17 06:13 97.8 F 97 H 109/80 11/30/17 17:51 98.2 F 97 H 16 116/65 97 Laboratory Results - last 24 hr 11/30/17 11/30/17 12/01/17 16:21 20:22 07:29 POC Glucose 159 H 231 H 169 H 12/01/17 12/01/17 11:28 16:40 POC Glucose 200 H 164 H Labs reviewed. Review of Systems All other systems reviewed negative except as stated in HPI (Limitation: Psychosis) Mental Status Examination Appearance: Disheveled Consciousness: Alert Orientation: Person, Place (At least) Motor Activity: Other (No abnormal motor movements noted) Speech: Unremarkable Language: Perseveration Fund of Knowledge: Adequate Attention and Concentration: Easily distracted Memory: Impaired (Psychosis interferes) Mood: Oppositional, Other (Less irritable today) Affect: Labile (Less labile) Thought Process & Associations: Tangential Thought Content: Delusional Hallucination Type: None Delusion Type: Paranoid (Remains quite paranoid) Suicidal Ideation: No Suicidal Plan: No Suicidal Intention: No Homicidal Ideation: No Homicidal Plan: No Homicidal Intention: No Insight: Poor Judgment: Poor Assessment and Plan - Assessment (1) Schizophrenia Code(s): F20.9 - Schizophrenia, unspecified Status: Acute - Plan Plan: Perhaps some partial response from the Seroquel. Continue Seroquel titration to 300 mg in the morning and 400 mg at bedtime to target residual psychotic symptoms. To consider further titration over the weekend. Continue other medications and care as ordered. Justification for Continued Inpatient Stay: Impairment in reality construction. Medication changes. High risk for decompensation in less restrictive environment. Discharge Planning: Placement versus state hospitalization Request Healthcare Surrogate/Guardian Advocate?: No (1) Schizophrenia Qualifiers: Schizophrenia type: paranoid schizophrenia Qualified Code(s): F20.0 - Paranoid schizophrenia
--- NOTE | 2017-12-01 12:45 | P.TTN ---
- Patient Problems Problems: 1. Discharge planning 2. Medication compliance 3. Knowledge deficit 4. Lack of coping skills - Progress Toward Goals Provider Present: Dr. Jay Michaels (Going to call mom. Pt. retained by the courts. Increased seroquel.) Psychiatric Counselors Present: Michael Dickens Jr., WALLY (Internally stimulated , disengages, unstable, no insight.) Group Spec/RT/OT/STARK Present: MI Fishman (Pt. does not attend groups.) - Documentation Teaching Recipient: Patient
[2017-12-01] MEDS: Ferrous Sulfate 325 MG Tablet PO SCH ×2 (12:54→16:54)
[2017-12-02] MEDS: Insulin NovoLOG Aspart Correctional Sugar Inj SQ SCH ×4 (07:39→20:57)
[2017-12-02 08:20] LABS: Baso % (Auto) 0.4 % (0.0-2.0); Eos % (Auto) 0.3 % (0.0-4.0); Hematocrit 38.9 % (35.0-46.0); Hemoglobin 11.9 gm/dL (11.6-15.3); Lymph # (Auto) 1.5 th/mm3 (1.0-4.8); Lymph % (Auto) 25.8 % (9.0-44.0); Mean Corpuscular Hemoglobin 20.7 pg (27.0-34.0); Mean Corpuscular Volume 67.8 fL (80.0-100.0); Mono # (Auto) 0.4 th/mm3 (0.0-0.9); Mono % (Auto) 6.9 % (0.0-8.0); Neut # (Auto) 3.8 th/mm3 (1.8-7.7); Neut % (Auto) 66.6 % (16.0-70.0); Platelet Count 234 th/mm3 (150-450); Red Blood Count 5.74 mil/mm3 (4.00-5.30); White Blood Count 5.6 th/mm3 (4.0-11.0)
[2017-12-02 08:27] LABS: Mean Corpuscular HGB Conc 30.5 % (32.0-36.0)
[2017-12-02 08:55] LABS: Albumin 3.6 g/dL (3.4-5.0); Anion Gap 9 meq/L (5-15); Aspartate Aminotransferase 16 U/L (15-37); Blood Urea Nitrogen 15 mg/dL (7-18); Calcium 8.9 mg/dL (8.5-10.1); Carbon Dioxide 27.2 meq/L (21.0-32.0); Chloride 102 meq/L (98-107); Glomerular Filtration Rate Greater Than 89 mL/min (>89); Glucose,Random 181 mg/dL (74-106); Potassium 3.9 meq/L (3.5-5.1); Sodium 138 meq/L (136-145)
[2017-12-02 08:56] LABS: Alanine Aminotransferase 15 U/L (10-53)
[2017-12-02 08:58] LABS: Alkaline Phosphatase 106 U/L (45-117)
[2017-12-02] MEDS: Mupirocin 2% Nasal Oint Topical Syringe EACH NARE SCH ×2 (09:00→20:27)
[2017-12-02] MEDS: QUEtiapine 100 MG Tablet PO SCH (09:31)
[2017-12-02] MEDS: Insulin Detemir Inj 1,000 UNIT/10 ML Vial SQ SCH ×2 (09:32→21:01)
[2017-12-02] MEDS: Chlorhexidine Gluconate 0.12% Liq 15 ML UDC SWISH-SPIT SCH ×2 (10:31→21:05)
[2017-12-02] MEDS: Ferrous Sulfate 325 MG Tablet PO SCH ×2 (11:21→16:40)
--- NOTE | 2017-12-02 15:02 | P.PNPSY ---
Subjective Chief Complaint: Psychosis Remarks: Pt seen and discussed with staff. She remains delusional. Staff report that pt showered and did hygiene activities with staff encouragement. Pt has been out of room today and engaged in some unit activities. No SI/HI Mental Status Examination Appearance: Disheveled Consciousness: Alert Orientation: Person, Place (At least) Motor Activity: Other (No abnormal motor movements noted) Speech: Unremarkable Language: Perseveration Fund of Knowledge: Adequate Attention and Concentration: Easily distracted Memory: Impaired (Psychosis interferes) Mood: Anxious Affect: Anxious Thought Process & Associations: Tangential Thought Content: Delusional Hallucination Type: None Delusion Type: Paranoid (Remains quite paranoid) Suicidal Ideation: No Suicidal Plan: No Suicidal Intention: No Homicidal Ideation: No Homicidal Plan: No Homicidal Intention: No Insight: Poor Judgment: Poor Assessment and Plan - Assessment (1) Schizophrenia Code(s): F20.9 - Schizophrenia, unspecified Status: Acute - Plan Plan: Continue current tx plan Justification for Continued Inpatient Stay: impairments in reality testing Request Healthcare Surrogate/Guardian Advocate?: No (1) Schizophrenia Qualifiers: Schizophrenia type: paranoid schizophrenia Qualified Code(s): F20.0 - Paranoid schizophrenia
[2017-12-03] MEDS: Insulin NovoLOG Aspart Correctional Sugar Inj SQ SCH ×5 (07:35→20:34)
[2017-12-03] MEDS: QUEtiapine 100 MG Tablet PO SCH (08:53)
[2017-12-03] MEDS: Insulin Detemir Inj 1,000 UNIT/10 ML Vial SQ SCH ×2 (08:54→20:31)
[2017-12-03] MEDS: Mupirocin 2% Nasal Oint Topical Syringe EACH NARE SCH ×2 (08:54→20:48)
[2017-12-03] MEDS: Chlorhexidine Gluconate 0.12% Liq 15 ML UDC SWISH-SPIT SCH ×2 (08:54→20:29)
[2017-12-03] MEDS: Ferrous Sulfate 325 MG Tablet PO SCH ×2 (11:26→16:36)
--- NOTE | 2017-12-03 13:54 | P.PNPSY ---
Subjective Chief Complaint: Psychosis Remarks: Medical record reviewed and discussed with nursing staff. MATTHIAS Guadalupe and I met with patient in her room. She is napping and states that she is very tired and does not sleep throughout the night. Nursing staff report that she has been making phone calls to her family that seem appropriate. She had one phone call that result in an argument with her daughter. Patient is still somewhat delusional, but improved since I last saw her a week ago. Review of Systems All other systems reviewed negative except as stated in HPI Mental Status Examination Appearance: Disheveled Consciousness: Alert Orientation: Person, Place (At least) Motor Activity: Other (No abnormal motor movements noted) Speech: Unremarkable Language: Perseveration Fund of Knowledge: Adequate Attention and Concentration: Easily distracted Memory: Impaired (Psychosis interferes) Mood: Appropriate Affect: Appropriate Thought Process & Associations: Tangential Thought Content: Delusional Hallucination Type: None Delusion Type: Paranoid (Remains quite paranoid) Suicidal Ideation: No Suicidal Plan: No Suicidal Intention: No Homicidal Ideation: No Homicidal Plan: No Homicidal Intention: No Insight: Poor Judgment: Poor Assessment and Plan - Assessment (1) Acute exacerbation of psychosis Code(s): F29 - Unspecified psychosis not due to a substance or known physiological condition Status: Acute - Plan Plan: Continue current tx plan Justification for Continued Inpatient Stay: Moving patient to a less restrictive environment may result in her decompensation. Request Healthcare Surrogate/Guardian Advocate?: No
[2017-12-04] MEDS: Insulin NovoLOG Aspart Correctional Sugar Inj SQ SCH ×4 (08:00→20:11)
[2017-12-04] MEDS: Insulin Detemir Inj 1,000 UNIT/10 ML Vial SQ SCH ×2 (08:12→20:14)
[2017-12-04] MEDS: QUEtiapine 100 MG Tablet PO SCH (08:33)
[2017-12-04] MEDS: Chlorhexidine Gluconate 0.12% Liq 15 ML UDC SWISH-SPIT SCH ×2 (08:33→20:38)
[2017-12-04] MEDS: Mupirocin 2% Nasal Oint Topical Syringe EACH NARE SCH (08:34)
--- NOTE | 2017-12-04 10:12 | P.PNPSY ---
Subjective Chief Complaint: Psychosis Remarks: Patient seen and examined with nurse and counselor. Chart reviewed. Case discussed with nursing staff. On my examination today, the patient remains delusional regarding her family and on somatic themes. However, she seems considerably calmer and less confrontational/oppositional. She denies any SI or HI. She has persistently declined her nasal Mupirocin and is requesting that this medication be discontinued. No side effects from medications besides mild tiredness. No physical complaints. She is receptive to assisted living placement today. Vital Signs Temp Pulse Resp BP Pulse Ox 12/04/17 15:23 98.2 F 90 18 121/64 98 12/04/17 06:00 97.9 F 100 H 18 136/64 100 12/03/17 17:41 98.0 F 90 18 116/60 98 Intake and Output 12/04/17 12/04/17 12/04/17 06:59 14:59 22:59 Other: Weight 116.9 kg Laboratory Results - last 24 hr 12/03/17 12/03/17 12/04/17 16:31 19:57 06:32 POC Glucose 156 H 202 H 194 H Labs reviewed. Review of Systems All other systems reviewed negative except as stated in HPI (Limitation: Psychosis) Mental Status Examination Appearance: Disheveled (Perhaps improving somewhat) Consciousness: Alert Orientation: Person, Place (At least) Motor Activity: Other (No motor abnormalities noted) Speech: Unremarkable Language: Perseveration Fund of Knowledge: Adequate Attention and Concentration: Easily distracted Memory: Impaired (Psychosis interferes) Mood: Appropriate Affect: Appropriate Thought Process & Associations: Tangential Thought Content: Delusional Hallucination Type: None Delusion Type: Paranoid, Somatic Suicidal Ideation: No Suicidal Plan: No Suicidal Intention: No Homicidal Ideation: No Homicidal Plan: No Homicidal Intention: No Insight: Poor Judgment: Poor Assessment and Plan - Assessment (1) Schizophrenia Code(s): F20.9 - Schizophrenia, unspecified Status: Acute - Plan Plan: Titrate nighttime dose of Seroquel to 450 mg to target psychosis. Continue morning dose of Seroquel unchanged. Continue to monitor on inpatient unit. Continue other medications and care as ordered. Justification for Continued Inpatient Stay: Medication changes. Risk for decompensation in less restrictive environment. Discharge Planning: Placement versus state hospitalization Request Healthcare Surrogate/Guardian Advocate?: No (1) Schizophrenia Qualifiers: Schizophrenia type: paranoid schizophrenia Qualified Code(s): F20.0 - Paranoid schizophrenia
[2017-12-04] MEDS: Ferrous Sulfate 325 MG Tablet PO SCH ×2 (12:08→16:52)
[2017-12-04] MEDS: QUEtiapine 25 MG Tablet PO SCH (20:39)
[2017-12-05] MEDS: Insulin NovoLOG Aspart Correctional Sugar Inj SQ SCH ×4 (08:19→20:05)
[2017-12-05] MEDS: Insulin Detemir Inj 1,000 UNIT/10 ML Vial SQ SCH ×2 (08:26→20:06)
[2017-12-05] MEDS: QUEtiapine 100 MG Tablet PO SCH (08:26)
[2017-12-05] MEDS: Chlorhexidine Gluconate 0.12% Liq 15 ML UDC SWISH-SPIT SCH ×2 (08:27→20:08)
--- NOTE | 2017-12-05 10:08 | P.TTN ---
- Patient Problems Problems: 1. Discharge planning 2. Medication compliance 3. Knowledge deficit 4. Lack of coping skills - Progress Toward Goals Provider Present: Dr. Jay Michaels (Going to call mom. Pt. retained by the courts. Increased seroquel. December 05, 2017 patient presents with somatic delusions, placement versus state hospital) Psychiatric Counselors Present: Michael Dickens Jr., WALLY (Internally stimulated , disengages, unstable, no insight. December 05, 2017 state packet completed, counselor handed the packet off to Lisa Montalvo [facility] to scan and submit for [facility] referral) Group Spec/RT/OT/STARK Present: MI Fishman (Pt. does not attend groups. March 06, 2018 patient remained seclusive to her room and does not attend groups.) - Documentation Teaching Recipient: Patient
--- NOTE | 2017-12-05 11:49 | P.PNPSY ---
Subjective Chief Complaint: Psychosis Remarks: Patient seen and examined with nurse. Chart reviewed. Case discussed with nursing staff. No behavioral issues noted. Case discussed in treatment team. Counselor working on placement. I find the patient out at fresh air. She seems much less irritable and is more sociable. She seems to be interacting appropriately with others. Patient remains a little bit paranoid regarding her family, but this seems somewhat attenuated. She does complain of some mild dizziness upon arising, and I have counseled her regarding safe standing. We will check orthostatic vital signs. No other physical complaints or medication side effects. Vital Signs Temp Pulse Resp BP Pulse Ox 12/05/17 06:20 97.9 F 88 18 111/65 99 Laboratory Results - last 24 hr 12/04/17 12/04/17 12/05/17 16:47 20:00 05:55 POC Glucose 188 H 254 H 176 H 12/05/17 11:32 POC Glucose 208 H Labs reviewed. Review of Systems All other systems reviewed negative except as stated in HPI Mental Status Examination Appearance: Appropriate (Fair grooming) Consciousness: Alert Orientation: Person, Place (At least) Motor Activity: Other (No abnormal motor movements noted) Speech: Unremarkable Language: Perseveration Fund of Knowledge: Adequate Attention and Concentration: Easily distracted Memory: Impaired (Psychosis interferes) Mood: Appropriate Affect: Appropriate Thought Process & Associations: Other (Fairly intact today) Thought Content: Delusional Hallucination Type: None Delusion Type: Paranoid (Decreasing), Somatic (Decreasing) Suicidal Ideation: No Suicidal Plan: No Suicidal Intention: No Homicidal Ideation: No Homicidal Plan: No Homicidal Intention: No Insight: Poor Judgment: Poor Assessment and Plan - Assessment (1) Schizophrenia Code(s): F20.9 - Schizophrenia, unspecified Status: Acute - Plan Plan: Patient seems to be improving with Seroquel. Continue current dose of Seroquel as ordered. Patient is mildly orthostatic by pulse but not by blood pressure. I have encouraged ample hydration and a modest increase in sodium intake. We will recheck in a few days. Continue to monitor on the inpatient unit. Continue other medications and care as ordered. Justification for Continued Inpatient Stay: Risk for decompensation in less restrictive environment. Discharge Planning: Placement versus state hospitalization Request Healthcare Surrogate/Guardian Advocate?: No (1) Schizophrenia Qualifiers: Schizophrenia type: paranoid schizophrenia Qualified Code(s): F20.0 - Paranoid schizophrenia
[2017-12-05] MEDS: Ferrous Sulfate 325 MG Tablet PO SCH ×2 (17:21→17:25)
[2017-12-05] MEDS: QUEtiapine 25 MG Tablet PO SCH (20:07)
[2017-12-06] MEDS: QUEtiapine 100 MG Tablet PO SCH (08:51)
[2017-12-06] MEDS: Insulin Detemir Inj 1,000 UNIT/10 ML Vial SQ SCH ×2 (08:52→20:06)
[2017-12-06] MEDS: Chlorhexidine Gluconate 0.12% Liq 15 ML UDC SWISH-SPIT SCH ×2 (08:52→20:06)
[2017-12-06] MEDS: Insulin NovoLOG Aspart Correctional Sugar Inj SQ SCH ×4 (08:53→20:08)
--- NOTE | 2017-12-06 13:14 | P.PNPSY ---
Subjective Chief Complaint: Psychosis Remarks: Patient seen and examined with nurse. Chart reviewed. Case discussed with nursing staff. No behavioral issues noted. Case discussed with counselor. Counselor is pursuing LONG-TERM placement. Counselor does inform me that [facility] is requesting test. On my examination today, the patient is calm and pleasant. She says that her dizziness is improving. Mood is improved and sleep is improved versus admission in patient's estimation. She denies audiovisual hallucinations. No delusional material verbalized. No new side effects from medications. No physical complaints. Vital Signs Temp Pulse Resp BP Pulse Ox 12/06/17 06:03 97.7 F 101 H 18 125/58 L 99 12/05/17 18:32 98.2 F 99 H 18 149/72 H 100 Laboratory Results - last 48 hr 12/04/17 12/04/17 12/05/17 16:47 20:00 05:55 POC Glucose 188 H 254 H 176 H 12/05/17 12/05/17 12/05/17 11:32 17:33 19:52 POC Glucose 208 H 217 H 236 H 12/06/17 12/06/17 05:58 11:18 POC Glucose 187 H 154 H Labs reviewed. Review of Systems All other systems reviewed negative except as stated in HPI Mental Status Examination Appearance: Appropriate Consciousness: Alert Orientation: Person, Place (At least) Motor Activity: Other (No motoric abnormalities noted) Speech: Unremarkable Language: Perseveration Fund of Knowledge: Adequate Attention and Concentration: Easily distracted Memory: Unremarkable (Fair on clinical exam) Mood: Appropriate Affect: Appropriate Thought Process & Associations: Intact Thought Content: Delusional Hallucination Type: None Delusion Type: Other (Paranoid and somatic delusions seem to be decreasing in intensity) Suicidal Ideation: No Homicidal Ideation: No Insight: Poor Judgment: Poor Assessment and Plan - Assessment (1) Schizophrenia Code(s): F20.9 - Schizophrenia, unspecified Status: Acute - Plan Plan: Continue current dose of Seroquel as ordered. Obtain beta hCG. Continue to monitor on the inpatient unit. Continue other medications and care as ordered. Justification for Continued Inpatient Stay: Risk for decompensation in less restrictive environment. Discharge Planning: Placement versus state hospitalization. Request Healthcare Surrogate/Guardian Advocate?: No (1) Schizophrenia Qualifiers: Schizophrenia type: paranoid schizophrenia Qualified Code(s): F20.0 - Paranoid schizophrenia
[2017-12-06] MEDS: Ferrous Sulfate 325 MG Tablet PO SCH ×2 (13:40→17:27)
[2017-12-06] MEDS: QUEtiapine 25 MG Tablet PO SCH (20:06)
[2017-12-07] MEDS: Insulin NovoLOG Aspart Correctional Sugar Inj SQ SCH ×4 (07:41→22:00)
[2017-12-07] MEDS: Insulin Detemir Inj 1,000 UNIT/10 ML Vial SQ SCH ×2 (08:08→21:58)
[2017-12-07] MEDS: QUEtiapine 100 MG Tablet PO SCH (08:09)
[2017-12-07] MEDS: Chlorhexidine Gluconate 0.12% Liq 15 ML UDC SWISH-SPIT SCH ×2 (08:09→22:53)
[2017-12-07] MEDS: Ferrous Sulfate 325 MG Tablet PO SCH ×2 (12:14→17:51)
--- NOTE | 2017-12-07 14:04 | P.PNPSY ---
Subjective Chief Complaint: Psychosis Remarks: Patient seen and examined with counselor. Chart reviewed. Case discussed with nursing staff who reports patient seems much improved with antipsychotic therapy. Case discussed with counselor who is exploring assisted living placement options. On my examination today, the patient is calm and cooperative. She does not verbalize any psychotic material. Affect is bright and euthymic. No side effects from medications. No physical complaints. Vital Signs Temp Pulse BP Pulse Ox 12/07/17 06:05 98.0 F 91 H 95/56 L 95 Laboratory Results - last 24 hr 12/06/17 12/06/17 12/06/17 16:51 19:46 21:23 POC Glucose 109 176 H Beta HCG, Quant 1 12/07/17 12/07/17 05:56 11:34 POC Glucose 174 H 194 H Beta HCG, Quant Labs reviewed. Beta hCG requested by [facility] negative. Review of Systems All other systems reviewed negative except as stated in HPI Mental Status Examination Appearance: Appropriate Consciousness: Alert Orientation: Person, Place (At least) Motor Activity: Other (No abnormal motor movements noted) Speech: Unremarkable Language: Perseveration Fund of Knowledge: Adequate Attention and Concentration: Adequate Memory: Unremarkable (Fair on clinical exam) Mood: Appropriate Affect: Appropriate, Euthymic Thought Process & Associations: Intact Thought Content: Appropriate Hallucination Type: None Delusion Type: None Suicidal Ideation: No Homicidal Ideation: No Insight: Poor Judgment: Poor Assessment and Plan - Assessment (1) Schizophrenia Code(s): F20.9 - Schizophrenia, unspecified Status: Acute - Plan Plan: Patient seems much improved with current medications. Continue Seroquel as ordered. Continue to monitor on the inpatient unit. To consider transfer to lower acuity unit. Continue other care as ordered. Justification for Continued Inpatient Stay: High risk for decompensation in less restrictive environment. Discharge Planning: Counselor working on placement. Request Healthcare Surrogate/Guardian Advocate?: No (1) Schizophrenia Qualifiers: Schizophrenia type: paranoid schizophrenia Qualified Code(s): F20.0 - Paranoid schizophrenia
[2017-12-07] MEDS: QUEtiapine 25 MG Tablet PO SCH (21:59)
[2017-12-08] MEDS: Insulin NovoLOG Aspart Correctional Sugar Inj SQ SCH ×4 (07:43→22:05)
[2017-12-08] MEDS: Chlorhexidine Gluconate 0.12% Liq 15 ML UDC SWISH-SPIT SCH ×2 (10:17→20:28)
[2017-12-08] MEDS: Insulin Detemir Inj 1,000 UNIT/10 ML Vial SQ SCH ×2 (10:17→20:26)
[2017-12-08] MEDS: QUEtiapine 100 MG Tablet PO SCH (10:18)
--- NOTE | 2017-12-08 13:33 | P.PNPSY ---
Subjective Chief Complaint: Psychosis Remarks: Patient seen and examined with nurse. Chart reviewed. Case discussed with nursing staff. No behavioral issues noted overnight. Case discussed with counselor. On my exam, patient is calm and cooperative. Affect is bright and reactive. She does not verbalize any psychotic material today. She remains agreeable to DES placement. No side effects from medications. No physical complaints. Vital Signs Temp Pulse Resp BP Pulse Ox 12/08/17 05:24 97.8 F 93 H 17 132/86 97 Intake and Output 12/08/17 12/08/17 12/08/17 06:59 14:59 22:59 Intake Total 720 / 720 Balance 720 / 720 Intake: Oral 720 / 720 Laboratory Results - last 24 hr 12/07/17 12/08/17 12/08/17 21:29 07:31 12:14 POC Glucose 144 H 163 H 261 H Labs reviewed. Review of Systems All other systems reviewed negative except as stated in HPI Mental Status Examination Appearance: Appropriate Consciousness: Alert Orientation: Person, Place, Situation Motor Activity: Other (No motoric abnormalities noted) Speech: Unremarkable Language: Perseveration Fund of Knowledge: Adequate Attention and Concentration: Adequate Memory: Unremarkable (Fair on clinical exam) Mood: Appropriate Affect: Appropriate, Euthymic Thought Process & Associations: Intact Thought Content: Appropriate Hallucination Type: None Delusion Type: None Suicidal Ideation: No Suicidal Plan: No Suicidal Intention: No Homicidal Ideation: No Homicidal Plan: No Homicidal Intention: No Insight: Poor Judgment: Poor Assessment and Plan - Assessment (1) Schizophrenia Code(s): F20.9 - Schizophrenia, unspecified Status: Acute - Plan Plan: Continue Seroquel as ordered. Patient seems to be responding nicely to this medication at current dose. Continue to monitor on inpatient unit. Continue other medications and care as ordered. Justification for Continued Inpatient Stay: Risk for decompensation in less restrictive environment. Discharge Planning: Counselor working on DES placement with patient. Request Healthcare Surrogate/Guardian Advocate?: No (1) Schizophrenia Qualifiers: Schizophrenia type: paranoid schizophrenia Qualified Code(s): F20.0 - Paranoid schizophrenia
[2017-12-08] MEDS: Ferrous Sulfate 325 MG Tablet PO SCH (17:34)
[2017-12-08] MEDS: QUEtiapine 25 MG Tablet PO SCH (20:28)
[2017-12-09] MEDS: Insulin NovoLOG Aspart Correctional Sugar Inj SQ SCH ×3 (07:24→16:40)
[2017-12-09] MEDS: Insulin Detemir Inj 1,000 UNIT/10 ML Vial SQ SCH ×2 (08:29→20:28)
[2017-12-09] MEDS: QUEtiapine 100 MG Tablet PO SCH (08:30)
[2017-12-09] MEDS: Chlorhexidine Gluconate 0.12% Liq 15 ML UDC SWISH-SPIT SCH ×2 (08:30→20:33)
[2017-12-09] MEDS: Ferrous Sulfate 325 MG Tablet PO SCH ×2 (12:00→17:27)
--- NOTE | 2017-12-09 18:47 | P.PNPSY ---
Subjective Chief Complaint: Psychosis Remarks: Reviewed electronic medical records and discussed case with staff. Follow-up was conducted in the hallway with MATTHIAS Denis present. Her nurse reports she continues to make bizarre statements periodically. Patient states that she is "okay" today. She reports that she had a good appetite is been sleeping well. She reports that her mood has been good today. Mental Status Examination Appearance: Appropriate Consciousness: Alert Orientation: Person, Place, Situation Motor Activity: Other (No motoric abnormalities noted) Speech: Unremarkable Language: Perseveration Fund of Knowledge: Adequate Attention and Concentration: Adequate Memory: Unremarkable (Fair on clinical exam) Mood: Appropriate Affect: Appropriate, Euthymic Thought Process & Associations: Intact Thought Content: Appropriate Hallucination Type: None Delusion Type: None Suicidal Ideation: No Suicidal Plan: No Suicidal Intention: No Homicidal Ideation: No Homicidal Plan: No Homicidal Intention: No Insight: Poor Judgment: Poor Assessment and Plan - Assessment (1) Schizophrenia Code(s): F20.9 - Schizophrenia, unspecified Status: Acute - Plan Plan: Patient will be reevaluated Monday by the attending psychiatrist. Continue with current treatment plan. Justification for Continued Inpatient Stay: Moving this patient to a less restrictive environment would likely result in decompensation. Request Healthcare Surrogate/Guardian Advocate?: No (1) Schizophrenia Qualifiers: Schizophrenia type: paranoid schizophrenia Qualified Code(s): F20.0 - Paranoid schizophrenia
[2017-12-09] MEDS: QUEtiapine 25 MG Tablet PO SCH (20:55)
[2017-12-10] MEDS: Insulin NovoLOG Aspart Correctional Sugar Inj SQ SCH ×4 (00:59→16:24)
[2017-12-10] MEDS: Insulin Detemir Inj 1,000 UNIT/10 ML Vial SQ SCH (08:30)
[2017-12-10] MEDS: QUEtiapine 100 MG Tablet PO SCH (08:56)
[2017-12-10] MEDS: Chlorhexidine Gluconate 0.12% Liq 15 ML UDC SWISH-SPIT SCH (08:56)
[2017-12-10] MEDS: Ferrous Sulfate 325 MG Tablet PO SCH ×2 (12:00→16:53)
--- NOTE | 2017-12-10 12:14 | P.PNPSY ---
Subjective Chief Complaint: Psychosis Remarks: Reviewed electronic medical records and discussed case with staff. Follow-up was conducted in the day room with MATTHIAS Denis present. Patient has very little insight. Nursing reports that she make bizzare comments. She is under the impression that she is going home tomorrow. She is eating and sleeping well. Denies AVH. Review of Systems All other systems reviewed negative except as stated in HPI Mental Status Examination Appearance: Appropriate Consciousness: Alert Orientation: Person, Place, Situation Motor Activity: Other (No motoric abnormalities noted) Speech: Unremarkable Language: Perseveration Fund of Knowledge: Adequate Attention and Concentration: Adequate Memory: Unremarkable (Fair on clinical exam) Mood: Appropriate Affect: Appropriate, Euthymic Thought Process & Associations: Intact Thought Content: Appropriate Hallucination Type: None Delusion Type: None Suicidal Ideation: No Suicidal Plan: No Suicidal Intention: No Homicidal Ideation: No Homicidal Plan: No Homicidal Intention: No Insight: Poor Judgment: Poor Assessment and Plan - Assessment (1) Acute exacerbation of psychosis Code(s): F29 - Unspecified psychosis not due to a substance or known physiological condition Status: Acute - Plan Plan: Patient will be reevaluated Monday by the attending psychiatrist. Continue with current treatment plan. Justification for Continued Inpatient Stay: Moving patient to a less restrictive environment may result in her decompensation. Request Healthcare Surrogate/Guardian Advocate?: No
[2017-12-11] MEDS: QUEtiapine 100 MG Tablet PO SCH (08:16)
[2017-12-11] MEDS: Insulin Detemir Inj 1,000 UNIT/10 ML Vial SQ SCH ×3 (09:16→20:29)
[2017-12-11] MEDS: Insulin NovoLOG Aspart Correctional Sugar Inj SQ SCH ×5 (09:38→22:28)
[2017-12-11] MEDS: Chlorhexidine Gluconate 0.12% Liq 15 ML UDC SWISH-SPIT SCH ×3 (12:16→21:57)
--- NOTE | 2017-12-11 12:31 | P.PNPSY ---
Subjective Chief Complaint: Psychosis Remarks: Patient seen and examined with nurse. Chart reviewed. Case discussed with nursing staff. Patient noted to be cooperative and friendly. On my examination today, the patient is calm and cooperative with exam. No psychotic material. She is perseverative on obtaining a room for rent instead of going to assisted living. Case discussed with counselor who reports that the patient does have a bed at [facility] if she is willing. I have encouraged her to strongly consider assisted living placement as I am concerned for her ability to function in an independent living situation. Denies side effects from medications. No physical complaints. Vital Signs Temp Pulse Resp BP Pulse Ox 12/11/17 05:59 98.3 F 80 18 136/63 95 12/10/17 17:26 98.0 F 102 H 17 137/80 98 Laboratory Results - last 24 hr 12/10/17 12/10/17 12/11/17 16:04 20:15 11:18 POC Glucose 104 178 H 118 H Labs reviewed. Review of Systems All other systems reviewed negative except as stated in HPI Mental Status Examination Appearance: Appropriate Consciousness: Alert Orientation: Person, Place, Date/Time (Approximate), Situation Motor Activity: Other (No abnormal motor movements noted) Speech: Unremarkable Language: Perseveration Fund of Knowledge: Adequate Attention and Concentration: Adequate Memory: Unremarkable (Fair on clinical exam) Mood: Appropriate Affect: Appropriate Thought Process & Associations: Intact Thought Content: Appropriate Hallucination Type: None Delusion Type: None Suicidal Ideation: No Suicidal Plan: No Suicidal Intention: No Homicidal Ideation: No Homicidal Plan: No Homicidal Intention: No Insight: Poor Judgment: Poor Assessment and Plan - Assessment (1) Schizophrenia Code(s): F20.9 - Schizophrenia, unspecified Status: Acute - Plan Plan: Continue current psychotropic medications as ordered. Continue to monitor on the inpatient unit. Continue other medications and care as ordered. Justification for Continued Inpatient Stay: Risk for decompensation in less restrictive environment. Discharge Planning: Patient now requesting independent living. I fear that she will not do well in independent living situation and have strongly recommended that she reconsider assisted living placement. A bed is available at [facility] if patient is willing. Request Healthcare Surrogate/Guardian Advocate?: No (1) Schizophrenia Qualifiers: Schizophrenia type: paranoid schizophrenia Qualified Code(s): F20.0 - Paranoid schizophrenia
[2017-12-11] MEDS: Ferrous Sulfate 325 MG Tablet PO SCH ×2 (16:48→16:49)
[2017-12-11] MEDS: Gabapentin 100 MG Capsule PO SCH (17:41)
[2017-12-11] MEDS: QUEtiapine 25 MG Tablet PO SCH (20:35)
[2017-12-12] MEDS: Insulin NovoLOG Aspart Correctional Sugar Inj SQ SCH ×4 (07:29→21:23)
[2017-12-12] MEDS: QUEtiapine 100 MG Tablet PO SCH (08:24)
[2017-12-12] MEDS: Gabapentin 100 MG Capsule PO SCH ×3 (08:25→17:00)
[2017-12-12] MEDS: Insulin Detemir Inj 1,000 UNIT/10 ML Vial SQ SCH ×2 (08:25→21:22)
[2017-12-12] MEDS: Chlorhexidine Gluconate 0.12% Liq 15 ML UDC SWISH-SPIT SCH ×2 (08:26→21:20)
[2017-12-12] MEDS: Ferrous Sulfate 325 MG Tablet PO SCH ×2 (11:34→16:59)
--- NOTE | 2017-12-12 15:44 | P.PNPSY ---
Subjective Chief Complaint: Psychosis Remarks: Reviewed electronic medical records and discussed case with staff. Follow-up was conducted in patient's room. Patient was found lying on the bed. She states that she "feels dehydrated like my blood is not really cleansing itself" . She perseverates on her lab work requesting copies of it. She states that she is been sleeping good and her appetite's been okay. She states that her mood is "pretty good, okay, stable". She expresses some anxiety about her possible move to the assisted living facility tomorrow, but states she is willing to go. She does request to have a prescription for a NovoLog pen upon her discharge. Mental Status Examination Appearance: Appropriate Consciousness: Alert Orientation: Person, Place, Date/Time (Approximate), Situation Motor Activity: Other (No abnormal motor movements noted) Speech: Unremarkable Language: Perseveration Fund of Knowledge: Adequate Attention and Concentration: Adequate Memory: Unremarkable (Fair on clinical exam) Mood: Appropriate Affect: Appropriate Thought Process & Associations: Intact Thought Content: Appropriate Hallucination Type: None Delusion Type: None Suicidal Ideation: No Suicidal Plan: No Suicidal Intention: No Homicidal Ideation: No Homicidal Plan: No Homicidal Intention: No Insight: Poor Judgment: Poor Assessment and Plan - Assessment (1) Schizophrenia Code(s): F20.9 - Schizophrenia, unspecified Status: Acute - Plan Plan: Patient will be reevaluated tomorrow by the attending psychiatrist. Continue with current treatment plan. Patient's transfer to assisted living facility was temporarily derailed due to an insurance snafu. Michael counselor is working on it. Justification for Continued Inpatient Stay: Moving this patient to a less restrictive environment would likely result in decompensation. Request Healthcare Surrogate/Guardian Advocate?: No (1) Schizophrenia Qualifiers: Schizophrenia type: paranoid schizophrenia Qualified Code(s): F20.0 - Paranoid schizophrenia
[2017-12-12] MEDS: QUEtiapine 25 MG Tablet PO SCH (21:21)
[2017-12-13] MEDS: Insulin Detemir Inj 1,000 UNIT/10 ML Vial SQ SCH ×2 (08:27→20:40)
[2017-12-13] MEDS: Gabapentin 100 MG Capsule PO SCH ×3 (08:27→17:54)
[2017-12-13] MEDS: Insulin NovoLOG Aspart Correctional Sugar Inj SQ SCH ×4 (08:27→20:40)
[2017-12-13] MEDS: Chlorhexidine Gluconate 0.12% Liq 15 ML UDC SWISH-SPIT SCH ×2 (08:27→20:33)
[2017-12-13] MEDS: QUEtiapine 100 MG Tablet PO SCH (08:27)
[2017-12-13] MEDS: Ferrous Sulfate 325 MG Tablet PO SCH ×2 (12:50→17:54)
--- NOTE | 2017-12-13 15:42 | P.PNPSY ---
Subjective Chief Complaint: Psychosis Remarks: Patient seen and examined with nurse. Chart reviewed. Case discussed with nursing staff. No behavioral issues noted. Case discussed with counselor. Ongoing issues with payer source delaying placement. On my exam today, patient is calm and pleasant. She denies any SI or HI. Denies any AVH. Reports mood and anxiety symptoms are improved versus admission. Denies side effects from medications. No physical complaints. Vital Signs Pulse Resp BP Pulse Ox 12/13/17 06:00 83 18 108/59 L 94 L 12/12/17 18:14 105 H 17 128/74 98 Laboratory Results - last 24 hr 12/12/17 12/12/17 12/13/17 16:19 19:44 07:35 POC Glucose 108 261 H 172 H 12/13/17 11:25 POC Glucose 183 H Labs reviewed. Review of Systems All other systems reviewed negative except as stated in HPI Mental Status Examination Appearance: Appropriate Consciousness: Alert Orientation: Person, Place (at least) Motor Activity: Other (No motor abnormalities noted.) Speech: Unremarkable Language: Adequate Fund of Knowledge: Adequate Attention and Concentration: Adequate Memory: Unremarkable (Fair on clinical exam) Mood: Appropriate Affect: Appropriate Thought Process & Associations: Intact, Linear Thought Content: Appropriate Hallucination Type: None Delusion Type: None Suicidal Ideation: No Suicidal Plan: No Suicidal Intention: No Homicidal Ideation: No Homicidal Plan: No Homicidal Intention: No Insight: Poor Judgment: Poor Assessment and Plan - Assessment (1) Schizophrenia Code(s): F20.9 - Schizophrenia, unspecified Status: Acute - Plan Plan: Continue Seroquel as ordered. Continue to monitor on the inpatient unit. Continue other medications and care as ordered. Justification for Continued Inpatient Stay: Risk for decompensation in less restrictive environment. Discharge Planning: Placement. Case discussed with counselor. Request Healthcare Surrogate/Guardian Advocate?: No (1) Schizophrenia Qualifiers: Schizophrenia type: paranoid schizophrenia Qualified Code(s): F20.0 - Paranoid schizophrenia
[2017-12-13 17:06] VITALS: TEMP 98
[2017-12-13] MEDS: QUEtiapine 25 MG Tablet PO SCH (20:33)
[2017-12-14 05:35] VITALS: BP 122/84; PULSE 84; RESP 16; O2SAT 96
[2017-12-14] MEDS: Gabapentin 100 MG Capsule PO SCH ×3 (08:08→18:25)
[2017-12-14] MEDS: Insulin Detemir Inj 1,000 UNIT/10 ML Vial SQ SCH (08:08)
[2017-12-14] MEDS: Chlorhexidine Gluconate 0.12% Liq 15 ML UDC SWISH-SPIT SCH (08:08)
[2017-12-14] MEDS: Insulin NovoLOG Aspart Correctional Sugar Inj SQ SCH ×3 (08:08→17:27)
[2017-12-14] MEDS: QUEtiapine 100 MG Tablet PO SCH (08:08)
[2017-12-14] MEDS: Ferrous Sulfate 325 MG Tablet PO SCH ×2 (12:17→17:27)
--- NOTE | 2017-12-14 12:27 | P.PNPSY ---
Subjective Chief Complaint: Psychosis Mental Status Examination Appearance: Appropriate Consciousness: Alert Orientation: Person, Place (at least) Motor Activity: Other (No motor abnormalities noted.) Speech: Unremarkable Language: Adequate Fund of Knowledge: Adequate Attention and Concentration: Adequate Memory: Unremarkable (Fair on clinical exam) Mood: Appropriate Affect: Appropriate Thought Process & Associations: Intact, Linear Thought Content: Appropriate Hallucination Type: None Delusion Type: None Suicidal Ideation: No Suicidal Plan: No Suicidal Intention: No Homicidal Ideation: No Homicidal Plan: No Homicidal Intention: No Insight: Poor Judgment: Poor Assessment and Plan - Assessment (1) Schizophrenia Code(s): F20.9 - Schizophrenia, unspecified Status: Acute - Plan Request Healthcare Surrogate/Guardian Advocate?: No (1) Schizophrenia Qualifiers: Schizophrenia type: paranoid schizophrenia Qualified Code(s): F20.0 - Paranoid schizophrenia
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
[2017-12-14 14:29] LABS: TB1 Ag minus Nil Result 0 IU/mL
== END 2017-12-14 16:32 | disposition left against medical advice (07) ==
LOC: NEPC 15:45 → NEDA 11-25 09:21 → H270 11-25 11:54 → H260 12-07 16:08
PROVIDERS: ADMIT Psychiatry & Neurology Psychiatry; ATTEND Psychiatry & Neurology Psychiatry